=== PATIENT | female | born 1975 | race Asian ===

== ENCOUNTER → 2018-06-17 07:26 | Outpatient (CLI) | payer OTHER, SELFPAY ==
[2018-06-17 08:59] LABS: Alanine Aminotransferase 33 IU/L (9-52); Albumin 4.4 g/dL (3.5-5.0); Albumin Globulin Ratio 1.5 (1.0-2.8); Alkaline Phosphatase 40 U/L (38-126); Aspartate Aminotransferase 24 IU/L (14-36); BUN Creatinine Ratio 13.3 (6-22); Bilirubin Total 0.3 mg/dL (0.2-1.3); Blood Urea Nitrogen 8 mg/dL (7-17); Calcium 9.5 mg/dL (8.4-10.2); Carbon Dioxide 31 mmol/L (22-32); Chloride 99 mmol/L (98-107); Cholesterol 131 mg/dL (140-199); Estimated Glomerular Filt Rate > 60.0 mL/min (>60); Globulin 2.9 g/dL (1.7-4.1); Glucose 87 mg/dL (70-100); HDL Cholesterol 50 mg/dL (40-60); HEMOLYSIS < 15 (0-50); LDL Cholesterol Calculated 68 mg/dL (<100); Potassium 4.4 mmol/L (3.4-5.1); Sodium 139 mmol/L (137-145); Total Protein 7.3 g/dL (6.3-8.2); Triglycerides 66 mg/dL (35-150)
== END ==
PROVIDERS: PCP Internal Medicine; Visit Provider Internal Medicine
DX: Z13.1 Encounter for screening for diabetes mellitus (principal); Z13.6 Encounter for screening for cardiovascular disorders
CPT/HCPCS: 36415; 80053; 80061

== ENCOUNTER → 2020-01-31 13:20 | Outpatient (CLI) | payer OTHER, SELFPAY ==
[2020-02-02 07:32] LABS: COVID19 Sendout Not Detected (Not Detect)
== END ==
PROVIDERS: PCP Internal Medicine; Visit Provider Physician Assistant
DX: M79.10 Myalgia, unspecified site (principal); R53.83 Other fatigue; Z11.59 Encounter for screening for other viral diseases
CPT/HCPCS: 87635

== ENCOUNTER → 2020-08-21 09:45 | Outpatient (CLI) | payer OTHER, SELFPAY ==
[2020-08-21 11:47] LABS: Alanine Aminotransferase 75 IU/L (<35); Albumin 4.5 g/dL (3.5-5.0); Albumin Globulin Ratio 1.4 (1.0-2.8); Alkaline Phosphatase 50 U/L (38-126); Aspartate Aminotransferase 58 IU/L (14-36); BUN Creatinine Ratio 26.2 (6-22); Bilirubin Total 0.4 mg/dL (0.2-1.3); Blood Urea Nitrogen 11 mg/dL (7-17); Calcium 9.6 mg/dL (8.4-10.2); Carbon Dioxide 30 mmol/L (22-32); Chloride 103 mmol/L (98-107); Estimated Glomerular Filt Rate > 60.0 mL/min (>60); Globulin 3.3 g/dL (1.7-4.1); Glucose 88 mg/dL (70-100); HEMOLYSIS < 15 (0-50); Magnesium 2.4 mg/dL (1.6-2.3); Potassium 4.1 mmol/L (3.4-5.1); Sodium 141 mmol/L (137-145); Total Protein 7.8 g/dL (6.3-8.2)
== END ==
PROVIDERS: PCP Internal Medicine; Referring Provider Internal Medicine; Visit Provider Internal Medicine
DX: R00.2 Palpitations (principal)
CPT/HCPCS: 36415; 80053; 83735

== ENCOUNTER → 2020-08-23 08:16 | Outpatient (CLI) | payer OTHER, SELFPAY ==
[2020-08-23 09:51] LABS: HEMOLYSIS < 15 (0-50); Iron 167 ug/dL (37-170)
[2020-08-23 09:53] LABS: Alanine Aminotransferase 78 IU/L (<35); Albumin 4.5 g/dL (3.5-5.0); Albumin Globulin Ratio 1.5 (1.0-2.8); Alkaline Phosphatase 45 U/L (38-126); Aspartate Aminotransferase 56 IU/L (14-36); Bilirubin Total 0.4 mg/dL (0.2-1.3); Bilirubin Unconjugated 0.5 mg/dL (0.0-1.1); Creatine Kinase 81 U/L (30-135); Globulin 3.1 g/dL (1.7-4.1); HEMOLYSIS < 15 (0-50); Total Protein 7.6 g/dL (6.3-8.2)
[2020-08-23 10:04] LABS: Percent Iron Saturation 54 % (15-50); Total Iron Binding Capacity 310 ug/dL (265-497); Transferrin 252 mg/dL (206-381)
[2020-08-23 10:21] LABS: TSH w/ Reflex to FT4 1.89 uIU/mL (0.47-4.68)
[2020-08-24 04:08] LABS: Ceruloplasmin 18.8 mg/dL (19.0-39.0)
[2020-08-24 05:30] LABS: Hepatitis B Surf Ab Qualitativ Reactive (.)
[2020-08-24 16:05] LABS: Hepatitis B Surface Antigen NEGATIVE s/c (NEGATIVE)
[2020-08-24 16:11] LABS: Hep C Virus Ab w/Reflex Quant NEGATIVE s/c (NEGATIVE)
[2020-08-25 14:59] LABS: Smooth Muscle Antibody 10 Units (0-19)
[2020-08-25 15:36] LABS: ANA Screen, IFA Negative (.)
[2020-08-29 04:01] LABS: Deamidated Gliadin IgA 7 units (0-19); Deamidated Gliadin IgG <1 units (0-19); IGA 196 mg/dL (87-352); t-Transglutaminase IgA <2 U/mL (0-3)
== END ==
PROVIDERS: PCP Internal Medicine; Referring Provider Internal Medicine; Visit Provider Internal Medicine
DX: K73.9 Chronic hepatitis, unspecified (principal); R74.01 Elevation of levels of liver transaminase levels
CPT/HCPCS: 36415; 80076; 82390; 82550; 82784; 83516; 83540; 83550; 84443; 86038; 86255; 86706; 86803; 87340

== ENCOUNTER → 2020-08-25 09:32 | Outpatient (CLI) | payer OTHER, SELFPAY ==
--- NOTE | 2020-08-25 09:33 | DI.MG.S_ITS ---
BILATERAL DIGITAL SCREENING MAMMOGRAM 3D/2D WITH CAD: 08/25/2020 CLINICAL: Routine screening. Comparison is made to exams dated: 07/11/2017 mammogram, 06/28/2015 mammogram, and 06/15/2009 mammogram - [facility]. The tissue of both breasts is heterogeneously dense. This may lower the sensitivity of mammography. Current study was also evaluated with a Computer Aided Detection (CAD) system. No significant masses, calcifications, or other findings are seen in either breast. There has been no significant interval change. IMPRESSION: NEGATIVE There is no mammographic evidence of malignancy. A 1 year screening mammogram is recommended. This exam was interpreted at Station ID: [id number]. NOTE: For mammograms, a report in lay terms will be sent to the patient. Approximately 15% of breast malignancies will not be visualized mammographically. In the management of a palpable breast mass, a negative mammogram must not discourage biopsy of a clinically suspicious lesion. Electronically Signed By: Patrick to/reubne:08/28/2020 07:39:52 letter sent: Normal Exam ACR BI-RADS Category 1: Negative 3341F
== END ==
PROVIDERS: PCP Internal Medicine; Referring Provider Internal Medicine; Visit Provider Internal Medicine
DX: Z12.31 Encounter for screening mammogram for malignant neoplasm of breast (principal); R00.2 Palpitations
CPT/HCPCS: 77063; 77067

== ENCOUNTER → 2020-08-30 09:49 | Outpatient (CLI) | payer OTHER, SELFPAY ==
--- NOTE | 2020-09-26 09:54 | PM.CARDMON.1 ---
Military Technology Manager Report Referral & Results Date Patient Seen: 08/30/20 Requesting provider: Alex Hankins Indication: Palpitations Duration of monitoring (days): 7 Diary information: There were 7 patient triggered events and no patient diary entries Patient triggered events were associated variably with (within 45 seconds) sinus rhythm, PVCs, PACs and SVT Data: Minimum heart rate identified was 55 beats per minute at 18:55 on 09/02/2020 Maximum sinus heart rate was 150 beats per minute at 09:48 on 09/03/2020 Maximum overall heart rate was 152 beats per minute at 12:02 on 09/05/2020 during a 4 beat run of SVT Less than 1% of identified beats were ventricular or supraventricular ectopic in origin, which would classify them as rare. There was wall only 1 run of SVT/atrial tachycardia lasting 4 beats at a rate of 152 beats per minute as above. Impression: 7 day campus monitor showing no significant dysrhythmias. Rare PACs and PVCs and a single run of SVT. No clear correlation between symptoms reported any significant dysrhythmia in part due to the rare nature of patient's identified dysrhythmias. Clinical correlation suggested
== END ==
PROVIDERS: PCP Internal Medicine; Referring Provider Internal Medicine; Visit Provider Internal Medicine
DX: R00.2 Palpitations (principal)
CPT/HCPCS: 93242; 93244

== ENCOUNTER → 2021-11-18 09:11 | Outpatient (CLI) | payer OTHER, SELFPAY ==
[2021-11-18 10:50] LABS: COVID19 -Nasal RAPID Negative (Negative)
== END ==
PROVIDERS: PCP Internal Medicine; Visit Provider Surgery
DX: Z01.812 Encounter for preprocedural laboratory examination (principal); Z20.822 Contact with and (suspected) exposure to COVID-19
CPT/HCPCS: 87635; C9803

== ENCOUNTER 2021-11-19 09:47 | Day surgery (SDC) | payer OTHER, SELFPAY ==
[2021-11-19 09:57] VITALS: BMI 27.4
[2021-11-19 10:03] VITALS: BP 133/86; PULSE 78; RESP 16; TEMP 36.6; O2SAT 100
[2021-11-19] MEDS: LACTATED RINGERS 1,000 ML 42 ML IV (10:10)
--- NOTE | 2021-11-19 11:05 | PM.HP.1 ---
History of Present Illness History of Present Illness Date Patient Seen: 11/19/21 Time Patient Seen: 11:05 Chief complaint: SDC Narrative: colon cancer screening. First scope, no family history or colon cancer symptoms. Patient History Medical History Cervical intraepithelial neoplasia grade III with severe dysplasia (01/22/11) Common wart Surgical History History of tonsillectomy Status post delivery Family & Social History Family History Father Age: 83 Heart disease Social History: household members family Tobacco & Substance use: Smoking Status Never smoker alcohol intake current alcohol intake frequency a few times a month Substance Use Type does not use Meds Home Medications and Allergies Home Medications Medication Instructions Recorded Confirmed Type cetirizine 10 mg tablet 10 mg PO Q DAY ##0 06/07/12 11/19/21 History fluticasone propionate 50 1 spray intranasal DAILY 08/21/20 11/19/21 History mcg/actuation nasal spray,suspension (Flonase Allergy Relief) Allergies Allergy/AdvReac Type Severity Reaction Status Date / Time No Known Drug Allergies Allergy Verified 11/19/21 09:56 Review of Systems Review of Systems ROS: Yes All systems reviewed with the patient and are negative except as otherwise documented Exam Vital Signs (past 8 hours): - 11/19/21 10:03 Temperature 97.9 F Pulse Rate 78 Respiratory Rate 16 Blood Pressure 133/86 Pulse Oximetry 100 Oxygen Delivery Method Room Air Oxygen Delivery Method Room Air Const General: cooperative and healthy appearing Nutritional Appearance: average body habitus [facility] Head: normocephalic and atraumatic Eyes General: appearance normal, both eyes and all related structures Sclera: sclerae normal Neck Neck: full ROM and trachea midline Chest Chest: normal inspection of the chest Resp Effort & Inspection: normal respiratory effort and able to speak in complete sentences Cardio Rate: regular rate Rhythm: regular rhythm GI Inspection: normal to inspection Skin General: no rashes or lesions noted and turgor normal Neuro General: patient alert, patient awake and patient oriented x3 Extrem General: full ROM Psych Appearance: grossly normal Mental Status: mental status grossly normal Judgment: judgment good Assessment & Plan Assessment & Plan narrative: colon cancer screening with colonoscopy and moderate sedation COVID-19 COVID-19 status: Negative Time Spent With Patient Time with patient: less than 30 minutes Critical Care time: I spent a total of [] minutes of critical care time on this patient's care today; this time is exclusive of procedural time.
[2021-11-19] MEDS: MIDAZOLAM 5 MG/5 ML VIAL 8 MG IV (11:35)
[2021-11-19] MEDS: fentaNYL 100 MCG/2 ML INJ 150 MCG IV (11:36)
--- NOTE | 2021-11-19 11:39 | PM.OP.COLON ---
Operative Date/Time/Diagnoses Date of procedure: 11/19/21 Time of procedure: 11:39 Pre-op diagnosis: colon cancer screening Post-op diagnosis: same Procedure & Clinicians Study performed: Colonoscopy with moderate sedation Same procedure as scheduled: Yes Indications: Colon cancer screening Surgeon: Sunni Elder Procedure Notes Procedure in detail: Preop diagnosis: Colon cancer screening Postop diagnosis: Same Operative procedure: Colonoscopy with moderate sedation Surgeon: Jesusita Elder MD Anesthetic: Versed 8 mg fentanyl 150 mcg Findings: Normal colon. No polyps, no diverticuli. Procedure: Patient placed in lateral position. Rectal exam performed showing normal tone no masses. Colonoscope was inserted into the rectum and advanced to ileocecal valve with minimal difficulty. Insufflation extraction scope and the above findings. Impression: Normal colonoscopy. No polyps, no diverticuli. Plan: Repeat colonoscopy in 10 years unless otherwise indicated by change in family history or clinical condition Sedation minutes: 15 Specimen(s): none sent Complications: none Post-procedure Recommendations: Colonoscopy in 10 years Follow up: as needed Disposition: PACU
[2021-11-19 11:44] VITALS: BP 107/66; PULSE 65; RESP 12; TEMP 36.8; O2SAT 95
[2021-11-19 11:47] VITALS: BP 101/67; PULSE 59; RESP 16; O2SAT 96
[2021-11-19 11:52] VITALS: BP 115/71; PULSE 73; RESP 14; O2SAT 97
[2021-11-19 11:57] VITALS: BP 105/67; PULSE 66; RESP 14; TEMP 37.3; O2SAT 97
[2021-11-19 11:59] VITALS: BP 111/66; PULSE 64; RESP 12; TEMP 36.8; O2SAT 98
== END 2021-11-19 12:12 | disposition home or self-care (01) ==
PROVIDERS: PCP Internal Medicine; Referring Provider Surgery; Visit Provider Surgery
PROC: 0DJD8ZZ Inspection of Lower Intestinal Tract, Via Natural or Artificial Opening Endoscopic (ICD-10-PCS; CPT 45378; principal; 2021-11-19 10:45)
DX: Z12.11 Encounter for screening for malignant neoplasm of colon (principal)
CPT/HCPCS: 45378; 99152; J2250; J3010

== ENCOUNTER → 2021-12-27 17:03 | Outpatient (CLI) | payer OTHER, SELFPAY | PROVIDERS: PCP Internal Medicine; Referring Provider Internal Medicine; Visit Provider Internal Medicine | DX: Z23 Encounter for immunization (principal) | CPT/HCPCS: 90471; 90686 ==

== ENCOUNTER → 2022-01-31 07:58 | Outpatient (CLI) | payer OTHER, SELFPAY ==
--- NOTE | 2022-01-31 | DI.MG.S_ITS ---
BILATERAL DIGITAL SCREENING MAMMOGRAM 3D/2D WITH CAD: 01/31/2022 CLINICAL: Routine screening. Comparison is made to exams dated: 08/25/2020 mammogram, 07/31/2017 mammogram, and 07/11/2017 mammogram - [facility]. Both breasts are heterogeneously dense, which may obscure small masses (category c / 51-75% glandular tissue). Current study was also evaluated with a Computer Aided Detection (CAD) system. No significant masses, calcifications, or other findings are seen in either breast. There has been no significant interval change. IMPRESSION: NEGATIVE There is no mammographic evidence of malignancy. A 1 year screening mammogram is recommended. This exam was interpreted at Station ID: [id number]. NOTE: For mammograms, a report in lay terms will be sent to the patient. Approximately 15% of breast malignancies will not be visualized mammographically. In the management of a palpable breast mass, a negative mammogram must not discourage biopsy of a clinically suspicious lesion. Electronically Signed By: Hardik modi/reuben:01/31/2022 13:10:40 letter sent: Normal Exam ACR BI-RADS Category 1: Negative 3341F
== END ==
PROVIDERS: PCP Internal Medicine; Referring Provider Internal Medicine; Visit Provider Internal Medicine
DX: Z12.31 Encounter for screening mammogram for malignant neoplasm of breast (principal)
CPT/HCPCS: 77063; 77067

== ENCOUNTER 2022-06-20 08:15 | Outpatient (RCR) | payer OTHER, SELFPAY ==
--- NOTE | 2022-04-11 21:38 | PT.OPPOC ---
Physical, Occupational & Speech Therapy At Current Diagnoses Cervicalgia (04/11/22) Visit Care Team Role Provider Type Alex Hankins MD Attending Provider Physician Family Provider Primary Care Provider Referring Provider Specialty: Internal Medicine Address: [address] [place] [address], [facility] [address], [address] Email: [email or web address] Plan Of Care PT-OP-T Assessment and Plan Start: 04/05/22 09:55 Freq: Status: Active Protocol: Document 04/11/22 09:45 AMB (Rec: 04/12/22 21:37 AMB [id number]) Physical Therapy Assessment Goals Two Impairment Pain Short Term Goal (STG) Lianna will work an 8 hour shift with 1/10 neck pain or less. STG Duration 4 weeks Prison Goal (LTG) Lianna will work on the computer for one hour with 1/ 10 neck pain or less. LTG Duration 6 weeks One Impairment ROM Short Term Goal (STG) Lianna will improve her active cervical rotation to 65 degrees bilaterally. STG Duration 4 weeks Prison Goal (LTG) Lianna will improve her active cervical flexion to at least 45 degrees. LTG Duration 6 weeks Assessment Summary Assessment Lianna attends physical therapy with chronic L sided cervical pain for past year. It has recently improved with a change in her workstation, but has continued to linger on in left upper trapezius and levator scapula. She presented with reduced range of motion into rotation and flexion. Reduced strength in her deep neck flexors and continued tension and tenderness in L>R neck musculature. She will benefit from physical therapy for instruction in an appropriate HEP and therapeutic exercise and manual therapy to return her ROM to within normal limits. Physical Therapy Plan Frequency and Duration Frequency of Treatment 2x/Week Duration of treatment (weeks) 6 Plan of Care Start Date 04/11/22 Plan of Care End Date 05/23/22 Therapeutic Interventions Therapeutic Interventions Home Exercise Program,Joint Mobilizations,Manual Therapy, Neuromuscular Re-education, Self-Care/Home Management, Therapeutic Activities, Therapeutic Exercises Modalities Cold Pack/Ice Massage,Electric Stimulation,Hot Packs Next Visit Focus/Plan Next Note Type Treatment Note Next Visit Plan Review cervical rotation isometrics and UT stretch. Can consider modalities/heat. Manual for increasing ROM especially into flexion. Progress stretching HEP. Plan of Care Dates Plan of Care Start Date 04/11/22 Plan of Care End Date 05/23/22 Electronically Signed by: Criss Francis, PT 04/12/22 [id number] If you are in agreement with this Plan of Care, please return a signed and dated copy. I have reviewed this Plan of Care and certify that the skilled therapy services above are required to meet the patient?s needs. Physician Signature Date Printed Name and Credentials Clinical Instructor Signature Printed Name and Credentials
--- NOTE | 2022-04-11 21:38 | PT.OIE ---
Current Diagnoses Cervicalgia (04/11/22) Past Medical History (Last Reviewed 03/18/22 @ 09:16 by WIN Mariscal) Cervical intraepithelial neoplasia grade III with severe dysplasia (01/22/11) Common wart Past Surgical History (Last Reviewed 03/18/22 @ 09:16 by WIN Mariscal) History of tonsillectomy Status post delivery Visit Care Team Role Provider Type Alex Hankins MD Attending Provider Physician Family Provider Primary Care Provider Referring Provider Specialty: Internal Medicine Address: [address] [place] [address], [address], [facility] Email: [email or web address] Physical Therapy Initial Evaluation PT-OP-A Visit Information Start: 04/05/22 09:55 Freq: Status: Active Protocol: Document 04/11/22 09:51 AMB (Rec: 04/11/22 09:58 AMB [id number]) Out-Patient Physical Therapy Visit Information Visit Information Visit Type Initial Evaluation Visit Start Time 09:45 Visit Stop Time 10:30 Total Visit Minutes 45 Visit Number 1 PT-OP-B Current Condition Start: 04/05/22 09:55 Freq: Status: Active Protocol: Document 04/11/22 09:51 AMB (Rec: 04/11/22 09:58 AMB [id number]) Current Condition History of Current Condition Onset Date 1 year Current Complaints L sided neck pain History of Current Condition Lianna reports feeling better with new workstation (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 L sided upper trap pain/levator scap. Denies n/t. Overall continues to have tightness but significantly improved. Does run and do core exercises , just started with a education trainer for weights, does some stretching. Prior Functional Status Baseline Function- ADL's Independent Baseline Function- Mobility Independent PT-OP-C Subjective Start: 04/05/22 09:55 Freq: Status: Active Protocol: Document 04/11/22 09:45 AMB (Rec: 04/11/22 16:01 AMB [id number]) Patient Questionnaires Neck Disability Index NDI Score 18 Neck Disability Index Impairment 20 to 39% Impaired (Score 10- 19) Quick Dash- Upper Extremity Quick Dash UE Score 18 Quick Dash UE Impairment 1 to 19% Impaired (Score 1-19) OP-PT Pain Assessment Comments Pain Comments 2-4/10 neck pain PT-OP-J Posture/Palpation/Skin Start: 04/05/22 09:55 Freq: Status: Active Protocol: Document 04/11/22 09:45 AMB (Rec: 04/11/22 16:02 AMB [id number]) Palpation Assessment Location One Palpation Location neck Palpation Details Tightness at UT and levator scap L>R, mild tenderness at suboccipitals PT-OP-K Range of Motion Start: 04/05/22 09:55 Freq: Status: Active Protocol: Document 04/11/22 09:45 AMB (Rec: 04/11/22 16:01 AMB [id number]) Cervical Spine Range of Motion Cervical Spine Active Degrees Testing Position Sitting Flexion 25 Extension 45 Rotation Left 55 Rotation Right 55 PT-OP-M Strength Start: 04/05/22 09:55 Freq: Status: Active Protocol: Document 04/11/22 09:45 AMB (Rec: 04/12/22 21:37 AMB [id number]) Cervical Spine Strength Cervical Spine Manual Muscle Testing Testing Position Supine Comments difficulty holding chin tuck/ neck flexion for more than 3 seconds with good form. PT-OP-Q Treatments Start: 04/05/22 09:55 Freq: Status: Active Protocol: Document 04/11/22 09:45 AMB (Rec: 04/12/22 21:37 AMB [id number]) Therapeutic Exercises Supine Exercises cervical isometrics Supine Exercise Name rotation Side bilateral Reps/Minutes 5x5 Comments cued breath Sitting Exercises UT stretch Side left Reps/Minutes 30x2 PT-OP-T Assessment and Plan Start: 04/05/22 09:55 Freq: Status: Active Protocol: Document 04/11/22 09:45 AMB (Rec: 04/12/22 21:37 AMB [id number]) Physical Therapy Assessment Goals Two Impairment Pain Short Term Goal (STG) Lianna will work an 8 hour shift with 1/10 neck pain or less. STG Duration 4 weeks Stamp Classifier Goal (LTG) Lianna will work on the computer for one hour with 1/ 10 neck pain or less. LTG Duration 6 weeks One Impairment ROM Short Term Goal (STG) Lianna will improve her active cervical rotation to 65 degrees bilaterally. STG Duration 4 weeks Stamp Classifier Goal (LTG) Lianna will improve her active cervical flexion to at least 45 degrees. LTG Duration 6 weeks Assessment Summary Assessment Lianna attends physical therapy with chronic L sided cervical pain for past year. It has recently improved with a change in her workstation, but has continued to linger on in left upper trapezius and levator scapula. She presented with reduced range of motion into rotation and flexion. Reduced strength in her deep neck flexors and continued tension and tenderness in L>R neck musculature. She will benefit from physical therapy for instruction in an appropriate HEP and therapeutic exercise and manual therapy to return her ROM to within normal limits. Physical Therapy Plan Frequency and Duration Frequency of Treatment 2x/Week Duration of treatment (weeks) 6 Plan of Care Start Date 04/11/22 Plan of Care End Date 05/23/22 Therapeutic Interventions Therapeutic Interventions Home Exercise Program,Joint Mobilizations,Manual Therapy, Neuromuscular Re-education, Self-Care/Home Management, Therapeutic Activities, Therapeutic Exercises Modalities Cold Pack/Ice Massage,Electric Stimulation,Hot Packs Next Visit Focus/Plan Next Note Type Treatment Note Next Visit Plan Review cervical rotation isometrics and UT stretch. Can consider modalities/heat. Manual for increasing ROM especially into flexion. Progress stretching HEP.
--- NOTE | 2022-04-14 17:47 | PT.OTN ---
Current Diagnoses Cervicalgia (04/14/22) Physical Therapy Treatment Note PT-OP-A Visit Information Start: 04/05/22 09:55 Freq: Status: Active Protocol: Document 04/14/22 13:54 NBM (Rec: 04/14/22 15:18 NBM [id number]) Out-Patient Physical Therapy Visit Information Visit Information Visit Type Treatment Note Visit Start Time 13:53 Visit Stop Time 14:38 Total Visit Minutes 45 Visit Number 2 Number of WATER SANDER Visits 1 PT-OP-B Current Condition Start: 04/05/22 09:55 Freq: Status: Active Protocol: Document 04/11/22 09:51 AMB (Rec: 04/11/22 09:58 AMB [id number]) Current Condition History of Current Condition Onset Date 1 year Current Complaints L sided neck pain History of Current Condition Lianna reports feeling better with new workstation (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 L sided upper trap pain/levator scap. Denies n/t. Overall continues to have tightness but significantly improved. Does run and do core exercises , just started with a computer technology trainer for weights, does some stretching. Prior Functional Status Baseline Function- ADL's Independent Baseline Function- Mobility Independent PT-OP-C Subjective Start: 04/05/22 09:55 Freq: Status: Active Protocol: Document 04/14/22 13:54 NBM (Rec: 04/14/22 15:18 NBM [id number]) OP-PT Subjective Patient Comments Patient Comments Pt reports soreness Thursday and Thursday, but better since. She got the theracane, but has not used it since she has not been sore since. She used salonpass and advil as well as the two PT ex's which helped. PT-OP-J Posture/Palpation/Skin Start: 04/05/22 09:55 Freq: Status: Active Protocol: Document 04/11/22 09:45 AMB (Rec: 04/11/22 16:02 AMB [id number]) Palpation Assessment Location One Palpation Location neck Palpation Details Tightness at UT and levator scap L>R, mild tenderness at suboccipitals PT-OP-K Range of Motion Start: 04/05/22 09:55 Freq: Status: Active Protocol: Document 04/11/22 09:45 AMB (Rec: 04/11/22 16:01 AMB [id number]) Cervical Spine Range of Motion Cervical Spine Active Degrees Testing Position Sitting Flexion 25 Extension 45 Rotation Left 55 Rotation Right 55 PT-OP-M Strength Start: 04/05/22 09:55 Freq: Status: Active Protocol: Document 04/11/22 09:45 AMB (Rec: 04/12/22 21:37 AMB [id number]) Cervical Spine Strength Cervical Spine Manual Muscle Testing Testing Position Supine Comments difficulty holding chin tuck/ neck flexion for more than 3 seconds with good form. PT-OP-Q Treatments Start: 04/05/22 09:55 Freq: Status: Active Protocol: Document 04/14/22 13:54 NBM (Rec: 04/14/22 15:18 NBM [id number]) Therapeutic Exercises Supine Exercises cervical isometrics Supine Exercise Name rotation Side bilateral Reps/Minutes 5x5 Sitting Exercises Cervical Retraction Iso Sitting Exercise Name w/ towel - HEP Equipment Used towel Reps/Minutes 10x3 SH Comments good feedback response Chin tuck Sitting Exercise Name w/ overpressure - HEP Reps/Minutes x10 Comments good form Scalene stretch Sitting Exercise Name HEP Side bilateral Reps/Minutes 30x2 Comments cues for form, good feedback response LS stretch Sitting Exercise Name HEP Side bilateral Reps/Minutes 30 x 2 Comments vc chin tuck UT stretch Side left Reps/Minutes 30x2 Comments vc chin tuck Manual Therapy Treatment Soft Tissue Mobilization periscapular Body Location L UT, L LS, medial border of scapula, rhomboids Mobilization Type Rolling,Strumming,Sustained Pressure,Trigger Point Release Intensity/Depth Moderate Body Position Hooklying Comments focus on LS insertion at superior angle of L scapula and medial border of L scapular cervical Body Location LS L>R, paraspinals, SO, scalenes Mobilization Type Rolling,Strumming,Sustained Pressure,Trigger Point Release Intensity/Depth Moderate Body Position Hooklying Comments SO release, manual cervical trx 2x30 Self-Care/Home Management Treatment Education Patient Education Home Exercise Program,Posture Other Education Clarified that cervical isometrics are for strengthening more than stretching. Discussed chin tucks to improve forward head posture. Added to HEP: LS and Scalene stretch, chin tuck w/ overpressure, Towel cervical retraction isometric - HO given. Discussed posterior chain strengthening for next visit. PT-OP-R Modalities Start: 04/05/22 09:55 Freq: Status: Active Protocol: Document 04/14/22 13:54 NBM (Rec: 04/14/22 17:46 [facility] [id number]) Hot Pack/Cold Pack Treatment Hot Pack Location cervical Patient Position Hooklying Treatment Duration (minutes) 10 Patient Tolerance Good PT-OP-T Assessment and Plan Start: 04/05/22 09:55 Freq: Status: Active Protocol: Document 04/14/22 13:54 NB (Rec: 04/14/22 15:18 [facility] [id number]) Physical Therapy Assessment Goals Two Impairment Pain Short Term Goal (STG) Lianna will work an 8 hour shift with 1/10 neck pain or less. STG Duration 4 weeks Senior Living Goal (LTG) Lianna will work on the computer for one hour with 1/ 10 neck pain or less. LTG Duration 6 weeks One Impairment ROM Short Term Goal (STG) Lianna will improve her active cervical rotation to 65 degrees bilaterally. STG Duration 4 weeks Senior Living Goal (LTG) Lianna will improve her active cervical flexion to at least 45 degrees. LTG Duration 6 weeks Assessment Summary Assessment Pt requires cues for chin tuck w/ ex's and discussed chin tuck to improve forward head posture. Pt's palpable tightness to L LS and medial border of scapula decreases with manual. Clarified that cerivical isometrics are for strengthening more than stretching. Added to HEP: LS and Scalene stretch, chin tuck w/ overpressure, Towel cervical retraction isometric - HO given. Discussed posterior chain strengthening for next visit. Physical Therapy Plan Frequency and Duration Frequency of Treatment 2x/Week Duration of treatment (weeks) 6 Plan of Care Start Date 04/11/22 Plan of Care End Date 05/23/22 Therapeutic Interventions Therapeutic Interventions Home Exercise Program,Joint Mobilizations,Manual Therapy, Neuromuscular Re-education, Self-Care/Home Management, Therapeutic Activities, Therapeutic Exercises Modalities Cold Pack/Ice Massage,Electric Stimulation,Hot Packs Next Visit Focus/Plan Next Note Type Treatment Note Next Visit Plan Introduce Posterior chain strengthening (rows, ext). Review cervical rotation isometrics and UT stretch. Can consider modalities/heat. Manual for increasing ROM especially into flexion. Progress stretching HEP.
--- NOTE | 2022-04-18 16:09 | PT.OTN ---
Current Diagnoses Cervicalgia (04/18/22) Physical Therapy Treatment Note PT-OP-A Visit Information Start: 04/05/22 09:55 Freq: Status: Active Protocol: Document 04/18/22 10:32 AMB (Rec: 04/18/22 11:40 AMB [id number]) Out-Patient Physical Therapy Visit Information Visit Information Visit Type Treatment Note Visit Start Time 10:30 Visit Stop Time 11:15 Total Visit Minutes 45 Visit Number 3 PT-OP-B Current Condition Start: 04/05/22 09:55 Freq: Status: Active Protocol: Document 04/11/22 09:51 AMB (Rec: 04/11/22 09:58 AMB [id number]) Current Condition History of Current Condition Onset Date 1 year Current Complaints L sided neck pain History of Current Condition Lianna reports feeling better with new workstation (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 L sided upper trap pain/levator scap. Denies n/t. Overall continues to have tightness but significantly improved. Does run and do core exercises , just started with a aed trainer for weights, does some stretching. Prior Functional Status Baseline Function- ADL's Independent Baseline Function- Mobility Independent PT-OP-C Subjective Start: 04/05/22 09:55 Freq: Status: Active Protocol: Document 04/18/22 10:32 AMB (Rec: 04/18/22 11:40 AMB [id number]) OP-PT Subjective Patient Comments Patient Comments Pt reports some soreness after last visit, overall some soreness with aed trainer exercises. PT-OP-J Posture/Palpation/Skin Start: 04/05/22 09:55 Freq: Status: Active Protocol: Document 04/11/22 09:45 AMB (Rec: 04/11/22 16:02 AMB [id number]) Palpation Assessment Location One Palpation Location neck Palpation Details Tightness at UT and levator scap L>R, mild tenderness at suboccipitals PT-OP-K Range of Motion Start: 04/05/22 09:55 Freq: Status: Active Protocol: Document 04/11/22 09:45 AMB (Rec: 04/11/22 16:01 AMB [id number]) Cervical Spine Range of Motion Cervical Spine Active Degrees Testing Position Sitting Flexion 25 Extension 45 Rotation Left 55 Rotation Right 55 PT-OP-M Strength Start: 04/05/22 09:55 Freq: Status: Active Protocol: Document 04/11/22 09:45 AMB (Rec: 04/12/22 21:37 AMB [id number]) Cervical Spine Strength Cervical Spine Manual Muscle Testing Testing Position Supine Comments difficulty holding chin tuck/ neck flexion for more than 3 seconds with good form. PT-OP-Q Treatments Start: 04/05/22 09:55 Freq: Status: Active Protocol: Document 04/18/22 10:32 AMB (Rec: 04/18/22 11:40 AMB [id number]) Therapeutic Exercises Sitting Exercises LS stretch Sitting Exercise Name HEP Side bilateral Reps/Minutes 30 x 2 Comments vc chin tuck UT stretch Side left Reps/Minutes 30x2 Comments vc chin tuck Standing Exercises wall walk and lift off Standing Exercise Name cued to maintain chin tuck Reps/Minutes 10 Comments good stretch shoulder ext Reps/Minutes #3 t band Comments 2x10 rows Equipment Used #3 t band Reps/Minutes 2x10 Manual Therapy Treatment Soft Tissue Mobilization cervical Body Location LS L>R, paraspinals, SO, scalenes Mobilization Type Rolling,Strumming,Sustained Pressure,Trigger Point Release Intensity/Depth Moderate Body Position Hooklying Comments SO release, manual cervical trx 2x30 Joint Mobilizations cervical Joint C3-5 Direction UPA Grade II Body Position Supine Reps/Duration 2x10 PT-OP-R Modalities Start: 04/05/22 09:55 Freq: Status: Active Protocol: Document 04/18/22 10:30 AMB (Rec: 04/18/22 15:57 AMB [id number]) Hot Pack/Cold Pack Treatment Hot Pack Location cervical Patient Position Hooklying Treatment Duration (minutes) 10 Patient Tolerance Good PT-OP-T Assessment and Plan Start: 04/05/22 09:55 Freq: Status: Active Protocol: Document 04/18/22 10:32 AMB (Rec: 04/18/22 11:40 AMB [id number]) Physical Therapy Assessment Goals Two Impairment Pain Short Term Goal (STG) Lianna will work an 8 hour shift with 1/10 neck pain or less. STG Duration 4 weeks Pneumatic Hoist Operator Goal (LTG) Lianna will work on the computer for one hour with 1/ 10 neck pain or less. LTG Duration 6 weeks One Impairment ROM Short Term Goal (STG) Lianna will improve her active cervical rotation to 65 degrees bilaterally. STG Duration 4 weeks Mcc Goal (LTG) Lianna will improve her active cervical flexion to at least 45 degrees. LTG Duration 6 weeks Assessment Summary Assessment Better form with chin tucks today. Encouraged posture and chin tucks with rows and shoulder extension. Did well with with form with shoulder flexion and lift off as well but did not give for HEP yet, could consider at next visit. Cervical flexion improved today, would still want to work on cervical rotation R ROM. Physical Therapy Plan Frequency and Duration Frequency of Treatment 2x/Week Duration of treatment (weeks) 6 Plan of Care Start Date 04/11/22 Plan of Care End Date 05/23/22 Therapeutic Interventions Therapeutic Interventions Home Exercise Program,Joint Mobilizations,Manual Therapy, Neuromuscular Re-education, Self-Care/Home Management, Therapeutic Activities, Therapeutic Exercises Modalities Cold Pack/Ice Massage,Electric Stimulation,Hot Packs Next Visit Focus/Plan Next Note Type Treatment Note Next Visit Plan REview Posterior chain strengthening (rows, ext). Review cervical rotation isometrics and UT stretch. Can consider modalities/heat. Manual for increasing ROM especially into flexion. Progress stretching HEP.
--- NOTE | 2022-04-25 10:01 | PT.OTN ---
Current Diagnoses Cervicalgia (04/25/22) Physical Therapy Treatment Note PT-OP-A Visit Information Start: 04/05/22 09:55 Freq: Status: Active Protocol: Document 04/25/22 09:25 NBM (Rec: 04/25/22 10:01 [facility] [id number]) Out-Patient Physical Therapy Visit Information Visit Information Visit Type Treatment Note Visit Start Time 09:15 Visit Stop Time 09:53 Total Visit Minutes 38 Visit Number 4 Number of WEATHER STRIPPER Visits 1 PT-OP-B Current Condition Start: 04/05/22 09:55 Freq: Status: Active Protocol: Document 04/11/22 09:51 AMB (Rec: 04/11/22 09:58 AMB [id number]) Current Condition History of Current Condition Onset Date 1 year Current Complaints L sided neck pain History of Current Condition Lianna reports feeling better with new workstation (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 L sided upper trap pain/levator scap. Denies n/t. Overall continues to have tightness but significantly improved. Does run and do core exercises , just started with a dog handler or trainer for weights, does some stretching. Prior Functional Status Baseline Function- ADL's Independent Baseline Function- Mobility Independent PT-OP-C Subjective Start: 04/05/22 09:55 Freq: Status: Active Protocol: Document 04/25/22 09:25 NBM (Rec: 04/25/22 10:01 [facility] [id number]) OP-PT Subjective Patient Comments Patient Comments Pt reports neck stiffness today. She went to gym this morning and did HEP. She forgot about the wall walk lift off one. She's been doing chin tucks regularly and feels there is improvement in posture, but wearing mask makes her stick her head forward. She is using theracane at home. PT-OP-J Posture/Palpation/Skin Start: 04/05/22 09:55 Freq: Status: Active Protocol: Document 04/11/22 09:45 AMB (Rec: 04/11/22 16:02 AMB [id number]) Palpation Assessment Location One Palpation Location neck Palpation Details Tightness at UT and levator scap L>R, mild tenderness at suboccipitals PT-OP-K Range of Motion Start: 04/05/22 09:55 Freq: Status: Active Protocol: Document 04/11/22 09:45 AMB (Rec: 04/11/22 16:01 AMB [id number]) Cervical Spine Range of Motion Cervical Spine Active Degrees Testing Position Sitting Flexion 25 Extension 45 Rotation Left 55 Rotation Right 55 PT-OP-M Strength Start: 04/05/22 09:55 Freq: Status: Active Protocol: Document 04/11/22 09:45 AMB (Rec: 04/12/22 21:37 AMB [id number]) Cervical Spine Strength Cervical Spine Manual Muscle Testing Testing Position Supine Comments difficulty holding chin tuck/ neck flexion for more than 3 seconds with good form. PT-OP-Q Treatments Start: 04/05/22 09:55 Freq: Status: Active Protocol: Document 04/25/22 09:25 NBM (Rec: 04/25/22 10:01 NBM [id number]) Therapeutic Exercises Sitting Exercises Shoulder ER Side bilateral Resistance Lvl3 Tb Reps/Minutes 2x5 Chin tuck Sitting Exercise Name w/ overpressure - HEP Reps/Minutes x10 Comments good form Standing Exercises wall walk and lift off Standing Exercise Name cued to maintain chin tuck and to perform lift off Reps/Minutes 10 Comments fatigues from arms overhead, cues for form Manual Therapy Treatment Soft Tissue Mobilization periscapular Body Location L UT, L LS, medial border of scapula, rhomboids Mobilization Type Rolling,Strumming,Sustained Pressure,Trigger Point Release Intensity/Depth Moderate Body Position Hooklying Comments focus on R UT, LS Self-Care/Home Management Treatment Education Patient Education Home Exercise Program,Pain Management,Safety Other Education Added to HEP: Wall walk w/ lift off - no HO given. PT-OP-R Modalities Start: 04/05/22 09:55 Freq: Status: Active Protocol: Document 04/18/22 10:30 AMB (Rec: 04/18/22 15:57 AMB [id number]) Hot Pack/Cold Pack Treatment Hot Pack Location cervical Patient Position Hooklying Treatment Duration (minutes) 10 Patient Tolerance Good PT-OP-T Assessment and Plan Start: 04/05/22 09:55 Freq: Status: Active Protocol: Document 04/25/22 09:25 NBM (Rec: 04/25/22 10:01 NBM [id number]) Physical Therapy Assessment Goals Two Impairment Pain Short Term Goal (STG) Lianna will work an 8 hour shift with 1/10 neck pain or less. STG Duration 4 weeks Penitentiary Goal (LTG) Lianna will work on the computer for one hour with 1/ 10 neck pain or less. LTG Duration 6 weeks One Impairment ROM Short Term Goal (STG) Lianna will improve her active cervical rotation to 65 degrees bilaterally. STG Duration 4 weeks Verification Engineer Goal (LTG) Lianna will improve her active cervical flexion to at least 45 degrees. LTG Duration 6 weeks Assessment Summary Assessment Pt requires cues for scapular retraction and scapular setting w/ posterior chain ex' s but does demonstrate improved chin tuck self- awareness. Pt's palpable stiffness improves with manual , Right focus>Left. Pt will use heat at home. Enocuraged to drink water as pt worked out earlier, reports feeling stiff and has palpable tightness R>L throughout cervicothoracic region. Added to HEP: wall walk w/ lift off. Physical Therapy Plan Frequency and Duration Frequency of Treatment 2x/Week Duration of treatment (weeks) 6 Plan of Care Start Date 04/11/22 Plan of Care End Date 05/23/22 Therapeutic Interventions Therapeutic Interventions Home Exercise Program,Joint Mobilizations,Manual Therapy, Neuromuscular Re-education, Self-Care/Home Management, Therapeutic Activities, Therapeutic Exercises Modalities Cold Pack/Ice Massage,Electric Stimulation,Hot Packs Next Visit Focus/Plan Next Note Type Treatment Note Next Visit Plan Consider heat to start. Offer wall walk HEP HO. Progress stretching HEP. REview Posterior chain strengthening (rows, ext), wall walk w/ liftoff. Review cervical rotation isometrics and UT stretch. Can consider modalities/heat. Manual for increasing ROM especially into flexion.
--- NOTE | 2022-04-28 11:27 | PT.OTN ---
Current Diagnoses Cervicalgia (04/28/22) Physical Therapy Treatment Note PT-OP-A Visit Information Start: 04/05/22 09:55 Freq: Status: Active Protocol: Document 04/28/22 10:41 LRN (Rec: 04/28/22 11:26 LRN [id number]) Out-Patient Physical Therapy Visit Information Visit Information Visit Type Treatment Note Visit Start Time 10:41 Visit Stop Time 11:19 Total Visit Minutes 38 Visit Number 5 PT-OP-B Current Condition Start: 04/05/22 09:55 Freq: Status: Active Protocol: Document 04/11/22 09:51 AMB (Rec: 04/11/22 09:58 AMB [id number]) Current Condition History of Current Condition Onset Date 1 year Current Complaints L sided neck pain History of Current Condition Lianna reports feeling better with new workstation (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 L sided upper trap pain/levator scap. Denies n/t. Overall continues to have tightness but significantly improved. Does run and do core exercises , just started with a application trainer for weights, does some stretching. Prior Functional Status Baseline Function- ADL's Independent Baseline Function- Mobility Independent PT-OP-C Subjective Start: 04/05/22 09:55 Freq: Status: Active Protocol: Document 04/28/22 10:41 LRN (Rec: 04/28/22 11:26 LRN [id number]) OP-PT Subjective Patient Comments Patient Comments Doing okay and didn't get a chance to do ex's. Less stiff from Thursday. Exercising t gym 3-4x/week and has a application trainer, so gets the ex's mixed up. No neck pain. Work station has been corrected for a month. Still has pain at end of shift. Decreased use of Salon Pas from 5 to 3 days a week. Reports post therapy that she feels it but denies pain. PT-OP-J Posture/Palpation/Skin Start: 04/05/22 09:55 Freq: Status: Active Protocol: Document 04/11/22 09:45 AMB (Rec: 04/11/22 16:02 AMB [id number]) Palpation Assessment Location One Palpation Location neck Palpation Details Tightness at UT and levator scap L>R, mild tenderness at suboccipitals PT-OP-K Range of Motion Start: 04/05/22 09:55 Freq: Status: Active Protocol: Document 04/11/22 09:45 AMB (Rec: 04/11/22 16:01 AMB [id number]) Cervical Spine Range of Motion Cervical Spine Active Degrees Testing Position Sitting Flexion 25 Extension 45 Rotation Left 55 Rotation Right 55 PT-OP-M Strength Start: 04/05/22 09:55 Freq: Status: Active Protocol: Document 04/11/22 09:45 AMB (Rec: 04/12/22 21:37 AMB [id number]) Cervical Spine Strength Cervical Spine Manual Muscle Testing Testing Position Supine Comments difficulty holding chin tuck/ neck flexion for more than 3 seconds with good form. PT-OP-Q Treatments Start: 04/05/22 09:55 Freq: Status: Active Protocol: Document 04/28/22 10:41 LRN (Rec: 04/28/22 11:26 LRN [id number]) Therapeutic Exercises Supine Exercises Horiz AB/AD Supine Exercise Name Neck Elongated-Horiz AB/AD Side bilateral Equipment Used 2# Reps/Minutes 15x Alternate arm lifts Supine Exercise Name Neck Elongated-Alternate arm lifts Side bilateral Equipment Used 2# Reps/Minutes 15x Sitting Exercises Shoulder press Sitting Exercise Name Shoulder press Side bilateral Reps/Minutes 21x, rest, 9x Standing Exercises wall walk and lift off Standing Exercise Name cued to maintain chin tuck and to perform lift off Reps/Minutes 15 Comments fatigues from arms overhead, cues for form shoulder ext Equipment Used #3 t band Reps/Minutes 3x10 rows Equipment Used #3 t band Reps/Minutes 3x10 Manual Therapy Treatment Soft Tissue Mobilization periscapular Body Location L UT, L LS Mobilization Type Myofascial Release,Strumming, Sustained Pressure Intensity/Depth Moderate Body Position Hooklying Comments focus on R UT, LS cervical Body Location Paraspinals, scalenes, C. tx Mobilization Type Strumming,Sustained Pressure Intensity/Depth Moderate Body Position Hooklying Comments manual cervical trx 2x30, LS stretch Joint Mobilizations cervical Joint C3-5 Direction UPA, Gapping L facets Grade II Body Position Supine Reps/Duration 4' PT-OP-R Modalities Start: 04/05/22 09:55 Freq: Status: Active Protocol: Document 04/18/22 10:30 AMB (Rec: 04/18/22 15:57 AMB [id number]) Hot Pack/Cold Pack Treatment Hot Pack Location cervical Patient Position Hooklying Treatment Duration (minutes) 10 Patient Tolerance Good PT-OP-T Assessment and Plan Start: 04/05/22 09:55 Freq: Status: Active Protocol: Document 04/28/22 10:41 LRN (Rec: 04/28/22 11:26 LRN [id number]) Physical Therapy Assessment Goals Two Impairment Pain Short Term Goal (STG) Lianna will work an 8 hour shift with 1/10 neck pain or less. STG Duration 4 weeks Mcc Goal (LTG) Lianna will work on the computer for one hour with 1/ 10 neck pain or less. LTG Duration 6 weeks One Impairment ROM Short Term Goal (STG) Lianna will improve her active cervical rotation to 65 degrees bilaterally. STG Duration 4 weeks Asbestos Hazard Abatement Worker Goal (LTG) Lianna will improve her active cervical flexion to at least 45 degrees. LTG Duration 6 weeks Assessment Summary Assessment Improving, decreased use of Salon Pas from 5 to 3 days a week. Pt feels L side of neck after therapy, but denied pain. Pt may have soreness from UT strengthening ex's. Physical Therapy Plan Frequency and Duration Frequency of Treatment 2x/Week Duration of treatment (weeks) 6 Plan of Care Start Date 04/11/22 Plan of Care End Date 05/23/22 Next Visit Focus/Plan Next Note Type Treatment Note Next Visit Plan Consider heat to start, or ex warm up on ?UBE. Offer wall walk HEP HO. Progress stretching HEP. Review Posterior chain strengthening (rows, ext), wall walk w/ liftoff. Review cervical rotation isometrics and UT stretch. Can consider modalities/heat. Manual for increasing ROM especially into flexion.
--- NOTE | 2022-05-05 13:52 | PT.OTN ---
Current Diagnoses Cervicalgia (05/05/22) Physical Therapy Treatment Note PT-OP-A Visit Information Start: 04/05/22 09:55 Freq: Status: Active Protocol: Document 05/05/22 13:11 NBM (Rec: 05/05/22 13:52 [facility] [id number]) Out-Patient Physical Therapy Visit Information Visit Information Visit Type Treatment Note Visit Start Time 13:06 Visit Stop Time 13:48 Total Visit Minutes 42 Visit Number 6 Number of CONSERVATION EDUCATOR Visits 1 PT-OP-B Current Condition Start: 04/05/22 09:55 Freq: Status: Active Protocol: Document 04/11/22 09:51 AMB (Rec: 04/11/22 09:58 AMB [id number]) Current Condition History of Current Condition Onset Date 1 year Current Complaints L sided neck pain History of Current Condition Lianna reports feeling better with new workstation (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 L sided upper trap pain/levator scap. Denies n/t. Overall continues to have tightness but significantly improved. Does run and do core exercises , just started with a link trainer mechanic for weights, does some stretching. Prior Functional Status Baseline Function- ADL's Independent Baseline Function- Mobility Independent PT-OP-C Subjective Start: 04/05/22 09:55 Freq: Status: Active Protocol: Document 05/05/22 13:11 NBM (Rec: 05/05/22 13:52 [facility] [id number]) OP-PT Subjective Patient Comments Patient Comments Pt states she woke up with a stiff neck today and is sleeping in the guest room since last night due to renovations. She used her regular pillows but the mattress is softer. She also moved furniture. She worked out this morning notices she is stiff. She felt good after the last visit. PT-OP-J Posture/Palpation/Skin Start: 04/05/22 09:55 Freq: Status: Active Protocol: Document 04/11/22 09:45 AMB (Rec: 04/11/22 16:02 AMB [id number]) Palpation Assessment Location One Palpation Location neck Palpation Details Tightness at UT and levator scap L>R, mild tenderness at suboccipitals PT-OP-K Range of Motion Start: 04/05/22 09:55 Freq: Status: Active Protocol: Document 04/11/22 09:45 AMB (Rec: 04/11/22 16:01 AMB [id number]) Cervical Spine Range of Motion Cervical Spine Active Degrees Testing Position Sitting Flexion 25 Extension 45 Rotation Left 55 Rotation Right 55 PT-OP-M Strength Start: 04/05/22 09:55 Freq: Status: Active Protocol: Document 04/11/22 09:45 AMB (Rec: 04/12/22 21:37 AMB [id number]) Cervical Spine Strength Cervical Spine Manual Muscle Testing Testing Position Supine Comments difficulty holding chin tuck/ neck flexion for more than 3 seconds with good form. PT-OP-Q Treatments Start: 04/05/22 09:55 Freq: Status: Active Protocol: Document 05/05/22 13:11 NBM (Rec: 05/05/22 13:52 NBM [id number]) Therapeutic Exercises Supine Exercises PPT Supine Exercise Name Posterior Pelvic Tilt Reps/Minutes 10x 5sec Comments w/ hot pack to thoracolumbar; cue for form Sitting Exercises LS stretch Side bilateral Reps/Minutes 30 x 2 Comments vc chin tuck UT stretch Side left Reps/Minutes 30x2 Comments vc chin tuck Manual Therapy Treatment Soft Tissue Mobilization periscapular Body Location L UT, L LS Mobilization Type Myofascial Release,Strumming, Sustained Pressure Intensity/Depth Moderate Body Position Hooklying Comments focus on R UT, LS cervical Body Location Paraspinals, scalenes, C. tx Mobilization Type Strumming,Sustained Pressure Intensity/Depth Moderate Body Position Hooklying Comments manual cervical trx 2x30 PT-OP-R Modalities Start: 04/05/22 09:55 Freq: Status: Active Protocol: Document 05/05/22 13:11 NBM (Rec: 05/05/22 13:52 NB [id number]) Hot Pack/Cold Pack Treatment Hot Pack Location thoracolumbar Patient Position Hooklying Treatment Duration (minutes) 15 Patient Tolerance Good Comments beginning treatment session PT-OP-T Assessment and Plan Start: 04/05/22 09:55 Freq: Status: Active Protocol: Document 05/05/22 13:11 NBM (Rec: 05/05/22 13:52 NB [id number]) Physical Therapy Assessment Goals Two Impairment Pain Short Term Goal (STG) Lianna will work an 8 hour shift with 1/10 neck pain or less. 05/05/22: at the most 1/10 - Goal met STG Duration 4 weeks Television News Reporter Goal (LTG) Lianna will work on the computer for one hour with 1/ 10 neck pain or less. LTG Duration 6 weeks One Impairment ROM Short Term Goal (STG) Lianna will improve her active cervical rotation to 65 degrees bilaterally. STG Duration 4 weeks Television News Reporter Goal (LTG) Lianna will improve her active cervical flexion to at least 45 degrees. LTG Duration 6 weeks Assessment Summary Assessment Treatment focus today on cervical stretching and manual therapy due to noticeable limited cervical ROM and stiffness, possibly due to sleeping in guest bed and moving furniture yesterday . Manual focus to cervical paraspinals and LS and Trapezius scapular insertions, L>R focus. Palpable tightness decreases with manual, and pt demonstrates improved cervical rotation and flexion/ extension and reports relief end of session. Pt has one visit scheduled and will schedule more today. Physical Therapy Plan Frequency and Duration Frequency of Treatment 2x/Week Duration of treatment (weeks) 6 Plan of Care Start Date 04/11/22 Plan of Care End Date 05/23/22 Therapeutic Interventions Therapeutic Interventions Home Exercise Program,Joint Mobilizations,Manual Therapy, Neuromuscular Re-education, Self-Care/Home Management, Therapeutic Activities, Therapeutic Exercises Modalities Cold Pack/Ice Massage,Electric Stimulation,Hot Packs Next Visit Focus/Plan Next Note Type Treatment Note Next Visit Plan Consider heat to start, or ex warm up on ?UBE. Offer wall walk HEP HO. Progress stretching HEP. Review Posterior chain strengthening (rows, ext), wall walk w/ liftoff. Review cervical rotation isometrics and UT stretch. Can consider modalities/heat. Manual for increasing ROM especially into flexion.
--- NOTE | 2022-05-09 16:00 | PT.OTN ---
Current Diagnoses Cervicalgia (05/09/22) Physical Therapy Treatment Note PT-OP-A Visit Information Start: 04/05/22 09:55 Freq: Status: Active Protocol: Document 05/09/22 10:40 AMB (Rec: 05/09/22 11:18 AMB [id number]) Out-Patient Physical Therapy Visit Information Visit Information Visit Type Treatment Note Visit Start Time 11:00 Visit Stop Time 13:48 Total Visit Minutes 42 Visit Number 7 Number of MINIATURE SET CONSTRUCTOR Visits 1 PT-OP-B Current Condition Start: 04/05/22 09:55 Freq: Status: Active Protocol: Document 04/11/22 09:51 AMB (Rec: 04/11/22 09:58 AMB [id number]) Current Condition History of Current Condition Onset Date 1 year Current Complaints L sided neck pain History of Current Condition Lianna reports feeling better with new workstation (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 L sided upper trap pain/levator scap. Denies n/t. Overall continues to have tightness but significantly improved. Does run and do core exercises , just started with a industrial trainer for weights, does some stretching. Prior Functional Status Baseline Function- ADL's Independent Baseline Function- Mobility Independent PT-OP-C Subjective Start: 04/05/22 09:55 Freq: Status: Active Protocol: Document 05/09/22 10:30 AMB (Rec: 05/09/22 16:00 AMB [id number]) OP-PT Subjective Patient Comments Patient Comments Pt continues to have increased pain with sleeping in different bed and after furniture moving. PT-OP-J Posture/Palpation/Skin Start: 04/05/22 09:55 Freq: Status: Active Protocol: Document 04/11/22 09:45 AMB (Rec: 04/11/22 16:02 AMB [id number]) Palpation Assessment Location One Palpation Location neck Palpation Details Tightness at UT and levator scap L>R, mild tenderness at suboccipitals PT-OP-K Range of Motion Start: 04/05/22 09:55 Freq: Status: Active Protocol: Document 04/11/22 09:45 AMB (Rec: 04/11/22 16:01 AMB [id number]) Cervical Spine Range of Motion Cervical Spine Active Degrees Testing Position Sitting Flexion 25 Extension 45 Rotation Left 55 Rotation Right 55 PT-OP-M Strength Start: 04/05/22 09:55 Freq: Status: Active Protocol: Document 04/11/22 09:45 AMB (Rec: 04/12/22 21:37 AMB [id number]) Cervical Spine Strength Cervical Spine Manual Muscle Testing Testing Position Supine Comments difficulty holding chin tuck/ neck flexion for more than 3 seconds with good form. PT-OP-Q Treatments Start: 04/05/22 09:55 Freq: Status: Active Protocol: Document 05/09/22 15:54 AMB (Rec: 05/09/22 15:59 AMB [id number]) Therapeutic Exercises Sitting Exercises Chin tuck Sitting Exercise Name w/ overpressure - HEP Reps/Minutes x10 Comments good form Scalene stretch Sitting Exercise Name HEP Side bilateral Reps/Minutes 30x2 Comments cues for form, good feedback response LS stretch Side bilateral Reps/Minutes 30 x 2 Comments vc chin tuck UT stretch Side left Reps/Minutes 30x2 Comments vc chin tuck Manual Therapy Treatment Soft Tissue Mobilization periscapular Body Location L UT, L LS Mobilization Type Myofascial Release,Strumming, Sustained Pressure Intensity/Depth Moderate Body Position Hooklying Comments focus on L UT, LS cervical Body Location Paraspinals, scalenes, C. tx Mobilization Type Strumming,Sustained Pressure Intensity/Depth Moderate Body Position Hooklying Comments manual cervical trx 2x30 PT-OP-R Modalities Start: 04/05/22 09:55 Freq: Status: Active Protocol: Document 05/09/22 10:30 AMB (Rec: 05/09/22 16:00 AMB [id number]) Hot Pack/Cold Pack Treatment Hot Pack Location thoracolumbar Patient Position Hooklying Treatment Duration (minutes) 15 Patient Tolerance Good Comments beginning treatment session PT-OP-T Assessment and Plan Start: 04/05/22 09:55 Freq: Status: Active Protocol: Document 05/09/22 15:54 AMB (Rec: 05/09/22 15:59 AMB [id number]) Physical Therapy Assessment Goals Two Impairment Pain Short Term Goal (STG) Lianna will work an 8 hour shift with 1/10 neck pain or less. 05/05/22: at the most 1/10 - Goal met STG Duration 4 weeks Longterm Goal (LTG) Lianna will work on the computer for one hour with 1/ 10 neck pain or less. LTG Duration 6 weeks One Impairment ROM Short Term Goal (STG) Lianna will improve her active cervical rotation to 65 degrees bilaterally. STG Duration 4 weeks Teleradiologist Goal (LTG) Lianna will improve her active cervical flexion to at least 45 degrees. LTG Duration 6 weeks Assessment Summary Assessment Treatement focused on L sided pain due to continued stiffness/pain s/p furniture moving. Discussed sleep postures. Physical Therapy Plan Frequency and Duration Frequency of Treatment 2x/Week Duration of treatment (weeks) 6 Plan of Care Start Date 04/11/22 Plan of Care End Date 05/23/22 Therapeutic Interventions Therapeutic Interventions Home Exercise Program,Joint Mobilizations,Manual Therapy, Neuromuscular Re-education, Self-Care/Home Management, Therapeutic Activities, Therapeutic Exercises Modalities Cold Pack/Ice Massage,Electric Stimulation,Hot Packs Next Visit Focus/Plan Next Note Type Treatment Note Next Visit Plan Consider heat to start, or ex warm up on ?UBE. Offer wall walk HEP HO. Progress stretching HEP. Review Posterior chain strengthening (rows, ext), wall walk w/ liftoff. Review cervical rotation isometrics and UT stretch. Can consider modalities/heat. Manual for increasing ROM especially into flexion.
--- NOTE | 2022-05-19 09:45 | PT.OTN ---
Current Diagnoses Cervicalgia (05/19/22) Physical Therapy Treatment Note PT-OP-A Visit Information Start: 04/05/22 09:55 Freq: Status: Active Protocol: Document 05/19/22 09:02 SP (Rec: 05/19/22 09:48 SP [id number]) Out-Patient Physical Therapy Visit Information Visit Information Visit Type Treatment Note Visit Start Time 09:02 Visit Stop Time 09:45 Total Visit Minutes 42 Visit Number 8 Number of SIGNALS INTELLIGENCE SUPERINTENDENT Visits 2 PT-OP-B Current Condition Start: 04/05/22 09:55 Freq: Status: Active Protocol: Document 04/11/22 09:51 AMB (Rec: 04/11/22 09:58 AMB [id number]) Current Condition History of Current Condition Onset Date 1 year Current Complaints L sided neck pain History of Current Condition Lianna reports feeling better with new workstation (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 L sided upper trap pain/levator scap. Denies n/t. Overall continues to have tightness but significantly improved. Does run and do core exercises , just started with a technology trainer for weights, does some stretching. Prior Functional Status Baseline Function- ADL's Independent Baseline Function- Mobility Independent PT-OP-C Subjective Start: 04/05/22 09:55 Freq: Status: Active Protocol: Document 05/19/22 09:02 SP (Rec: 05/19/22 09:48 SP [id number]) OP-PT Subjective Patient Comments Patient Comments Pt reports feel PT is helping feel less tightness and pain throughout day. Compliant with HEP. PT-OP-J Posture/Palpation/Skin Start: 04/05/22 09:55 Freq: Status: Active Protocol: Document 04/11/22 09:45 AMB (Rec: 04/11/22 16:02 AMB [id number]) Palpation Assessment Location One Palpation Location neck Palpation Details Tightness at UT and levator scap L>R, mild tenderness at suboccipitals PT-OP-K Range of Motion Start: 04/05/22 09:55 Freq: Status: Active Protocol: Document 04/11/22 09:45 AMB (Rec: 04/11/22 16:01 AMB [id number]) Cervical Spine Range of Motion Cervical Spine Active Degrees Testing Position Sitting Flexion 25 Extension 45 Rotation Left 55 Rotation Right 55 PT-OP-M Strength Start: 04/05/22 09:55 Freq: Status: Active Protocol: Document 04/11/22 09:45 AMB (Rec: 04/12/22 21:37 AMB [id number]) Cervical Spine Strength Cervical Spine Manual Muscle Testing Testing Position Supine Comments difficulty holding chin tuck/ neck flexion for more than 3 seconds with good form. PT-OP-Q Treatments Start: 04/05/22 09:55 Freq: Status: Active Protocol: Document 05/19/22 09:02 SP (Rec: 05/19/22 09:48 SP [id number]) Gym Equipment Cable Column (Body Solid) Rows Resistance 20# Reps/Time x15 pull down Resistance 20# Reps/Time x15 Therapeutic Exercises Sidelying Exercises openbook Sidelying Exercise Name added to HEP Side bilateral Reps/Minutes x8 reps Comments cued head turn and fluid scapular ROM/ TS rotation- good response Sitting Exercises Chin tuck Sitting Exercise Name w/ overpressure - HEP Reps/Minutes x10 Comments good form Scalene stretch Sitting Exercise Name HEP Side bilateral Reps/Minutes 30x2 Comments cued opp UE hand anchor clavicle LS stretch Side bilateral Reps/Minutes 30 x 2 Comments vc chin tuck UT stretch Sitting Exercise Name cued can use over pressure Side left Reps/Minutes 30x2 Comments vc chin tuck Standing Exercises CS: chin tuck, lat SB Standing Exercise Name initiated in PT Resistance TB #1 around head vs isometric Yellow ball wall Equipment Used mirror self alignment Reps/Minutes x10 each directions T, 5 reps 5 SH ball wall Comments cued no UT recruitment- good little effort response- cued trunk alignment wall walk and lift off Standing Exercise Name Ys off wall Resistance AROM, TB #1 Equipment Used cued to maintain chin tuck and to perform lift off Reps/Minutes x10 AROM, x8 reps TB #1 Comments cued closer to wall Other Exercises self STMs Other Exercise Name reviewed self STMs Equipment Used ball wall post scap, thercane Comments MWM head nods/turns, scap FM PT-OP-R Modalities Start: 04/05/22 09:55 Freq: Status: Active Protocol: Document 05/09/22 10:30 AMB (Rec: 05/09/22 16:00 AMB [id number]) Hot Pack/Cold Pack Treatment Hot Pack Location thoracolumbar Patient Position Hooklying Treatment Duration (minutes) 15 Patient Tolerance Good Comments beginning treatment session PT-OP-T Assessment and Plan Start: 04/05/22 09:55 Freq: Status: Active Protocol: Document 05/19/22 09:02 SP (Rec: 05/19/22 09:48 SP [id number]) Physical Therapy Assessment Goals Two Impairment Pain Short Term Goal (STG) Lianna will work an 8 hour shift with 1/10 neck pain or less. 05/05/22: at the most 1/10 - Goal met STG Duration 4 weeks Alf Goal (LTG) Lianna will work on the computer for one hour with 1/ 10 neck pain or less. LTG Duration 6 weeks One Impairment ROM Short Term Goal (STG) Lianna will improve her active cervical rotation to 65 degrees bilaterally. STG Duration 4 weeks Back Up Scan Coordinator Goal (LTG) Lianna will improve her active cervical flexion to at least 45 degrees. LTG Duration 6 weeks Assessment Summary Assessment Pt tolerated added resistance to CS ROM, Ys off wall for LT strengthening OH mobility and added open book (no HO requried) for fluid movement early am. Pt stated feels PT helping with less tension felt in neck end tx and carryover at home. Physical Therapy Plan Frequency and Duration Frequency of Treatment 2x/Week Duration of treatment (weeks) 6 Plan of Care Start Date 04/11/22 Plan of Care End Date 05/23/22 Therapeutic Interventions Therapeutic Interventions Home Exercise Program,Joint Mobilizations,Manual Therapy, Neuromuscular Re-education, Self-Care/Home Management, Therapeutic Activities, Therapeutic Exercises Modalities Cold Pack/Ice Massage,Electric Stimulation,Hot Packs Next Visit Focus/Plan Next Note Type Treatment Note Next Visit Plan Consider heat to start, or ex warm up on ?UBE. Offer Ys off wall, CS TB HEP HO if wants. Progress stretching HEP. Review Posterior chain strengthening (rows, ext). Review cervical rotation isometrics and UT stretch. Can consider modalities/heat. Manual for increasing ROM especially into flexion.
--- NOTE | 2022-05-30 12:00 | PT.OTN ---
Current Diagnoses Cervicalgia (05/30/22) Physical Therapy Treatment Note PT-OP-A Visit Information Start: 04/05/22 09:55 Freq: Status: Active Protocol: Document 05/30/22 09:57 AMB (Rec: 05/30/22 10:36 AMB [id number]) Out-Patient Physical Therapy Visit Information Visit Information Visit Type Progress Note Visit Start Time 09:02 Visit Stop Time 09:45 Total Visit Minutes 42 Visit Number 9 Number of IT DISASTER RECOVERY MANAGER Visits 0 PT-OP-B Current Condition Start: 04/05/22 09:55 Freq: Status: Active Protocol: Document 04/11/22 09:51 AMB (Rec: 04/11/22 09:58 AMB [id number]) Current Condition History of Current Condition Onset Date 1 year Current Complaints L sided neck pain History of Current Condition Lianna reports feeling better with new workstation (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 L sided upper trap pain/levator scap. Denies n/t. Overall continues to have tightness but significantly improved. Does run and do core exercises , just started with a customer service trainer for weights, does some stretching. Prior Functional Status Baseline Function- ADL's Independent Baseline Function- Mobility Independent PT-OP-C Subjective Start: 04/05/22 09:55 Freq: Status: Active Protocol: Document 05/30/22 09:45 AMB (Rec: 05/31/22 09:49 AMB [id number]) OP-PT Subjective Patient Comments Patient Comments Pt reports overall she feels she is improving, some days are more painful than others, continues to have stiffness in the neck. Patient Reported Progress Improving PT-OP-J Posture/Palpation/Skin Start: 04/05/22 09:55 Freq: Status: Active Protocol: Document 04/11/22 09:45 AMB (Rec: 04/11/22 16:02 AMB [id number]) Palpation Assessment Location One Palpation Location neck Palpation Details Tightness at UT and levator scap L>R, mild tenderness at suboccipitals PT-OP-K Range of Motion Start: 04/05/22 09:55 Freq: Status: Active Protocol: Document 04/11/22 09:45 AMB (Rec: 04/11/22 16:01 AMB [id number]) Cervical Spine Range of Motion Cervical Spine Active Degrees Testing Position Sitting Flexion 25 Extension 45 Rotation Left 55 Rotation Right 55 PT-OP-M Strength Start: 04/05/22 09:55 Freq: Status: Active Protocol: Document 04/11/22 09:45 AMB (Rec: 04/12/22 21:37 AMB [id number]) Cervical Spine Strength Cervical Spine Manual Muscle Testing Testing Position Supine Comments difficulty holding chin tuck/ neck flexion for more than 3 seconds with good form. PT-OP-Q Treatments Start: 04/05/22 09:55 Freq: Status: Active Protocol: Document 05/30/22 09:45 AMB (Rec: 05/31/22 09:49 AMB [id number]) Therapeutic Exercises Sitting Exercises Scalene stretch Sitting Exercise Name HEP Side bilateral Reps/Minutes 30x2 Comments cued opp UE hand anchor clavicle LS stretch Side bilateral Reps/Minutes 30 x 2 Comments vc chin tuck UT stretch Sitting Exercise Name cued can use over pressure Side left Reps/Minutes 30x2 Comments vc chin tuck Standing Exercises CS: chin tuck, lat SB Standing Exercise Name initiated in PT Resistance TB #1 around head vs isometric Yellow ball wall Equipment Used mirror self alignment Reps/Minutes x10 each directions T, 5 reps 5 SH ball wall Comments cued no UT recruitment- good little effort response- cued trunk alignment Manual Therapy Treatment Soft Tissue Mobilization cervical Body Location Paraspinals, scalenes, C. tx Mobilization Type Strumming,Sustained Pressure Intensity/Depth Moderate Body Position Hooklying Comments manual cervical trx 2x30 Joint Mobilizations cervical Joint C3-5 Direction UPA, Gapping L facets Grade II Body Position Supine Reps/Duration 4' PT-OP-R Modalities Start: 04/05/22 09:55 Freq: Status: Active Protocol: Document 05/09/22 10:30 AMB (Rec: 05/09/22 16:00 AMB [id number]) Hot Pack/Cold Pack Treatment Hot Pack Location thoracolumbar Patient Position Hooklying Treatment Duration (minutes) 15 Patient Tolerance Good Comments beginning treatment session PT-OP-T Assessment and Plan Start: 04/05/22 09:55 Freq: Status: Active Protocol: Document 05/30/22 09:57 AMB (Rec: 05/30/22 10:36 AMB [id number]) Physical Therapy Assessment Goals Two Impairment Pain Short Term Goal (STG) Lianna will work an 8 hour shift with 1/10 neck pain or less. 05/05/22: at the most 1/10 - Goal met STG Duration Goal met Mcfp Goal (LTG) Lianna will work on the computer for one hour with 1/ 10 neck pain or less. LTG Duration 6 weeks One Impairment ROM Short Term Goal (STG) Lianna will improve her active cervical rotation to 65 degrees bilaterally. STG Duration 4 weeks Mcfp Goal (LTG) Lianna will improve her active cervical flexion to at least 45 degrees. LTG Duration MET Assessment Summary Assessment Lianna has improved her ROM, but continues to be limited with cervical rotation- cervical flexion goal has been met. Overall pain levels are decreasing but stiffness comes and goes, work probably does increase pain/stiffness. Continue to progress exercises so that pt can be independent in near future. Physical Therapy Plan Frequency and Duration Frequency of Treatment 2x/Week Duration of treatment (weeks) 8 Plan of Care Start Date 05/30/22 Plan of Care End Date 07/25/22 Therapeutic Interventions Therapeutic Interventions Home Exercise Program,Joint Mobilizations,Manual Therapy, Neuromuscular Re-education, Self-Care/Home Management, Therapeutic Activities, Therapeutic Exercises Modalities Cold Pack/Ice Massage,Electric Stimulation,Hot Packs Next Visit Focus/Plan Next Note Type Treatment Note Next Visit Plan Consider UBE for warm up Offer Ys off wall, CS TB HEP HO if wants. Progress stretching HEP . Review Posterior chain strengthening (rows, ext). Review cervical rotation isometrics and UT stretch.
--- NOTE | 2022-05-30 12:00 | PT.OPPOC ---
Physical, Occupational & Speech Therapy At [facility] Current Diagnoses Cervicalgia (05/30/22) Visit Care Team Role Provider Type Alex Hankins MD Attending Provider Physician Family Provider Primary Care Provider Referring Provider Specialty: Internal Medicine Address: [address] [place] [address], [address], [place], [address] Email: [email or web address] Plan Of Care PT-OP-T Assessment and Plan Start: 04/05/22 09:55 Freq: Status: Active Protocol: Document 05/30/22 09:57 AMB (Rec: 05/30/22 10:36 AMB [id number]) Physical Therapy Assessment Goals Two Impairment Pain Short Term Goal (STG) Lianna will work an 8 hour shift with 1/10 neck pain or less. 05/05/22: at the most 1/10 - Goal met STG Duration Goal met Detention Goal (LTG) Lianna will work on the computer for one hour with 1/ 10 neck pain or less. LTG Duration 6 weeks One Impairment ROM Short Term Goal (STG) Lianna will improve her active cervical rotation to 65 degrees bilaterally. STG Duration 4 weeks Hot Plate Plywood Press Offbearer Goal (LTG) Lianna will improve her active cervical flexion to at least 45 degrees. LTG Duration MET Assessment Summary Assessment Lianna has improved her ROM, but continues to be limited with cervical rotation- cervical flexion goal has been met. Overall pain levels are decreasing but stiffness comes and goes, work probably does increase pain/stiffness. Continue to progress exercises so that pt can be independent in near future. Physical Therapy Plan Frequency and Duration Frequency of Treatment 2x/Week Duration of treatment (weeks) 8 Plan of Care Start Date 05/30/22 Plan of Care End Date 07/25/22 Therapeutic Interventions Therapeutic Interventions Home Exercise Program,Joint Mobilizations,Manual Therapy, Neuromuscular Re-education, Self-Care/Home Management, Therapeutic Activities, Therapeutic Exercises Modalities Cold Pack/Ice Massage,Electric Stimulation,Hot Packs Next Visit Focus/Plan Next Note Type Treatment Note Next Visit Plan Consider UBE for warm up Offer Ys off wall, CS TB HEP HO if wants. Progress stretching HEP . Review Posterior chain strengthening (rows, ext). Review cervical rotation isometrics and UT stretch. Plan of Care Dates Plan of Care Start Date 05/30/22 Plan of Care End Date 07/25/22 Electronically Signed by: Criss Francis, LOIL 05/31/22 0954 If you are in agreement with this Plan of Care, please return a signed and dated copy. I have reviewed this Plan of Care and certify that the skilled therapy services above are required to meet the patient?s needs. Physician Signature Date Printed Name and Credentials Clinical Instructor Signature Printed Name and Credentials
--- NOTE | 2022-06-02 10:35 | PT.OTN ---
Current Diagnoses Cervicalgia (06/02/22) Physical Therapy Treatment Note PT-OP-A Visit Information Start: 04/05/22 09:55 Freq: Status: Active Protocol: Document 06/02/22 09:56 NBM (Rec: 06/02/22 10:30 NBM [id number]) Out-Patient Physical Therapy Visit Information Visit Information Visit Type Treatment Note Visit Start Time 09:51 Visit Stop Time 10:31 Total Visit Minutes 40 Visit Number 10 Number of REFUELER Visits 1 PT-OP-B Current Condition Start: 04/05/22 09:55 Freq: Status: Active Protocol: Document 04/11/22 09:51 AMB (Rec: 04/11/22 09:58 AMB [id number]) Current Condition History of Current Condition Onset Date 1 year Current Complaints L sided neck pain History of Current Condition Lianna reports feeling better with new workstation (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 L sided upper trap pain/levator scap. Denies n/t. Overall continues to have tightness but significantly improved. Does run and do core exercises , just started with a puppy trainer for weights, does some stretching. Prior Functional Status Baseline Function- ADL's Independent Baseline Function- Mobility Independent PT-OP-C Subjective Start: 04/05/22 09:55 Freq: Status: Active Protocol: Document 06/02/22 09:56 NBM (Rec: 06/02/22 10:30 NBM [id number]) OP-PT Subjective Patient Comments Patient Comments Pt reports she has no pain today, but Mondays usually seem better in general, and she's no longer moving furniture. She thinks the neck exercise with Daisy with the band and ball was challenging and good. PT-OP-J Posture/Palpation/Skin Start: 04/05/22 09:55 Freq: Status: Active Protocol: Document 04/11/22 09:45 AMB (Rec: 04/11/22 16:02 AMB [id number]) Palpation Assessment Location One Palpation Location neck Palpation Details Tightness at UT and levator scap L>R, mild tenderness at suboccipitals PT-OP-K Range of Motion Start: 04/05/22 09:55 Freq: Status: Active Protocol: Document 04/11/22 09:45 AMB (Rec: 04/11/22 16:01 AMB [id number]) Cervical Spine Range of Motion Cervical Spine Active Degrees Testing Position Sitting Flexion 25 Extension 45 Rotation Left 55 Rotation Right 55 PT-OP-M Strength Start: 04/05/22 09:55 Freq: Status: Active Protocol: Document 04/11/22 09:45 AMB (Rec: 04/12/22 21:37 AMB [id number]) Cervical Spine Strength Cervical Spine Manual Muscle Testing Testing Position Supine Comments difficulty holding chin tuck/ neck flexion for more than 3 seconds with good form. PT-OP-Q Treatments Start: 04/05/22 09:55 Freq: Status: Active Protocol: Document 06/02/22 09:56 NBM (Rec: 06/02/22 10:30 NBM [id number]) Therapeutic Exercises Sidelying Exercises openbook Sidelying Exercise Name HEP review Side bilateral Reps/Minutes x8 reps ea Comments cued head turn and fluid scapular ROM/ TS rotation- good response Standing Exercises CS: chin tuck, lat SB Standing Exercise Name initiated in PT Resistance TB #1 around head vs isometric Yellow ball wall Equipment Used mirror self alignment Reps/Minutes x10 each directions T, ball wall attempted but too small Comments cued no UT recruitment- good little effort response- cued trunk alignment wall walk and lift off Standing Exercise Name wall walk off wall, then Y's off wall Resistance AROM, TB #1 Equipment Used cued to maintain chin tuck and to perform lift off Reps/Minutes x10 AROM, x8 reps TB #1 Comments cued closer to wall shoulder ext Standing Exercise Name HEP review Equipment Used #3 t band Reps/Minutes x10 rows Standing Exercise Name HEP review Equipment Used #3 t band Reps/Minutes 2x10 Comments cues for scapular setting first, elbows not past side PT-OP-R Modalities Start: 04/05/22 09:55 Freq: Status: Active Protocol: Document 05/09/22 10:30 AMB (Rec: 05/09/22 16:00 AMB [id number]) Hot Pack/Cold Pack Treatment Hot Pack Location thoracolumbar Patient Position Hooklying Treatment Duration (minutes) 15 Patient Tolerance Good Comments beginning treatment session PT-OP-T Assessment and Plan Start: 04/05/22 09:55 Freq: Status: Active Protocol: Document 06/02/22 09:56 NBM (Rec: 06/02/22 10:30 [facility] [id number]) Physical Therapy Assessment Goals Two Impairment Pain Short Term Goal (STG) Lianna will work an 8 hour shift with 1/10 neck pain or less. 05/05/22: at the most 1/10 - Goal met STG Duration Goal met Review Consultant Goal (LTG) Lianna will work on the computer for one hour with 1/ 10 neck pain or less. LTG Duration 6 weeks One Impairment ROM Short Term Goal (STG) Lianna will improve her active cervical rotation to 65 degrees bilaterally. STG Duration 4 weeks Senior Living Goal (LTG) Lianna will improve her active cervical flexion to at least 45 degrees. LTG Duration MET Assessment Summary Assessment Pt requires cues for holding some stretches at least thirty seconds. Pt's right thoracic rotation tighter than left rotation with open book stretch - good feedback response to both sides. Pt requires cues for scapular setting and chin tuck with resisted shoulder rows. Pt encouraged to do neck ex's w/ band at home before bed to encourage compliance for strengthening cervical stabilizers. Physical Therapy Plan Frequency and Duration Frequency of Treatment 2x/Week Duration of treatment (weeks) 8 Plan of Care Start Date 05/30/22 Plan of Care End Date 07/25/22 Therapeutic Interventions Therapeutic Interventions Home Exercise Program,Joint Mobilizations,Manual Therapy, Neuromuscular Re-education, Self-Care/Home Management, Therapeutic Activities, Therapeutic Exercises Modalities Cold Pack/Ice Massage,Electric Stimulation,Hot Packs Next Visit Focus/Plan Next Note Type Treatment Note Next Visit Plan Consider UBE for warm up Offer Ys off wall, CS TB HEP HO if wants. Progress stretching HEP . Review Posterior chain strengthening (rows, ext). Review cervical rotation isometrics and UT stretch.
--- NOTE | 2022-06-06 09:39 | PT.OTN ---
Current Diagnoses Cervicalgia (06/06/22) Physical Therapy Treatment Note PT-OP-A Visit Information Start: 04/05/22 09:55 Freq: Status: Active Protocol: Document 06/06/22 09:06 AMB (Rec: 06/06/22 09:38 AMB [id number]) Out-Patient Physical Therapy Visit Information Visit Information Visit Type Treatment Note Visit Start Time 09:00 Visit Stop Time 09:45 Total Visit Minutes 40 Visit Number 11 Number of NURSING TECHNICIAN Visits 0 PT-OP-B Current Condition Start: 04/05/22 09:55 Freq: Status: Active Protocol: Document 04/11/22 09:51 AMB (Rec: 04/11/22 09:58 AMB [id number]) Current Condition History of Current Condition Onset Date 1 year Current Complaints L sided neck pain History of Current Condition Lianna reports feeling better with new workstation (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 L sided upper trap pain/levator scap. Denies n/t. Overall continues to have tightness but significantly improved. Does run and do core exercises , just started with a education trainer for weights, does some stretching. Prior Functional Status Baseline Function- ADL's Independent Baseline Function- Mobility Independent PT-OP-C Subjective Start: 04/05/22 09:55 Freq: Status: Active Protocol: Document 06/06/22 09:06 AMB (Rec: 06/06/22 09:38 AMB [id number]) OP-PT Subjective Patient Comments Patient Comments Pt strained her mid back Thursday afternoon. PT-OP-J Posture/Palpation/Skin Start: 04/05/22 09:55 Freq: Status: Active Protocol: Document 04/11/22 09:45 AMB (Rec: 04/11/22 16:02 AMB [id number]) Palpation Assessment Location One Palpation Location neck Palpation Details Tightness at UT and levator scap L>R, mild tenderness at suboccipitals PT-OP-K Range of Motion Start: 04/05/22 09:55 Freq: Status: Active Protocol: Document 04/11/22 09:45 AMB (Rec: 04/11/22 16:01 AMB [id number]) Cervical Spine Range of Motion Cervical Spine Active Degrees Testing Position Sitting Flexion 25 Extension 45 Rotation Left 55 Rotation Right 55 PT-OP-M Strength Start: 04/05/22 09:55 Freq: Status: Active Protocol: Document 04/11/22 09:45 AMB (Rec: 04/12/22 21:37 AMB [id number]) Cervical Spine Strength Cervical Spine Manual Muscle Testing Testing Position Supine Comments difficulty holding chin tuck/ neck flexion for more than 3 seconds with good form. PT-OP-Q Treatments Start: 04/05/22 09:55 Freq: Status: Active Protocol: Document 06/06/22 09:06 AMB (Rec: 06/06/22 09:38 AMB [id number]) Therapeutic Exercises Sidelying Exercises openbook Sidelying Exercise Name HEP review Side bilateral Reps/Minutes x8 reps ea Comments cued head turn and fluid scapular ROM/ TS rotation- good response Sitting Exercises UT stretch Sitting Exercise Name cued can use over pressure Side left Reps/Minutes 30x2 Comments vc chin tuck Standing Exercises rows Standing Exercise Name HEP review Equipment Used #3 t band Reps/Minutes 2x10 Comments cues for scapular setting first, elbows not past side Other Exercises quadruped Other Exercise Name cat/cow, thread the needle Reps/Minutes 10 Manual Therapy Treatment Soft Tissue Mobilization periscapular Body Location L UT, L LS Mobilization Type Myofascial Release,Strumming, Sustained Pressure Intensity/Depth Moderate Body Position Hooklying Comments focus on L UT, LS cervical Body Location Paraspinals, scalenes, C. tx Mobilization Type Strumming,Sustained Pressure Intensity/Depth Moderate Body Position Hooklying Comments manual cervical trx 2x30 PT-OP-R Modalities Start: 04/05/22 09:55 Freq: Status: Active Protocol: Document 05/09/22 10:30 AMB (Rec: 05/09/22 16:00 AMB [id number]) Hot Pack/Cold Pack Treatment Hot Pack Location thoracolumbar Patient Position Hooklying Treatment Duration (minutes) 15 Patient Tolerance Good Comments beginning treatment session PT-OP-T Assessment and Plan Start: 04/05/22 09:55 Freq: Status: Active Protocol: Document 06/06/22 09:06 AMB (Rec: 06/06/22 09:38 AMB [id number]) Physical Therapy Assessment Goals Two Impairment Pain Short Term Goal (STG) Lianna will work an 8 hour shift with 1/10 neck pain or less. 2/6/23: at the most 1/10 - Goal met STG Duration Goal met Final Assembly And Packing Supervisor Goal (LTG) Lianna will work on the computer for one hour with 1/ 10 neck pain or less. LTG Duration 6 weeks One Impairment ROM Short Term Goal (STG) Lianna will improve her active cervical rotation to 65 degrees bilaterally. STG Duration 4 weeks Final Assembly And Packing Supervisor Goal (LTG) Lianna will improve her active cervical flexion to at least 45 degrees. LTG Duration MET Assessment Summary Assessment Pt doing well with her neck, more bothered by her back today. Physical Therapy Plan Frequency and Duration Frequency of Treatment 2x/Week Duration of treatment (weeks) 8 Plan of Care Start Date 05/30/22 Plan of Care End Date 07/25/22 Therapeutic Interventions Therapeutic Interventions Home Exercise Program,Joint Mobilizations,Manual Therapy, Neuromuscular Re-education, Self-Care/Home Management, Therapeutic Activities, Therapeutic Exercises Modalities Cold Pack/Ice Massage,Electric Stimulation,Hot Packs Next Visit Focus/Plan Next Note Type Treatment Note Next Visit Plan Consider UBE for warm up Offer Ys off wall, CS TB HEP HO if wants. Progress stretching HEP . Review Posterior chain strengthening (rows, ext). Review cervical rotation isometrics and UT stretch.
--- NOTE | 2022-06-09 12:24 | PT.OTN ---
Current Diagnoses Cervicalgia (06/09/22) Physical Therapy Treatment Note PT-OP-A Visit Information Start: 04/05/22 09:55 Freq: Status: Active Protocol: Document 06/09/22 11:22 NBM (Rec: 06/09/22 12:23 NB [id number]) Out-Patient Physical Therapy Visit Information Visit Information Visit Type Treatment Note Visit Start Time 11:20 Visit Stop Time 12:00 Total Visit Minutes 40 Visit Number 12 Number of SCREEN TENDER Visits 1 PT-OP-B Current Condition Start: 04/05/22 09:55 Freq: Status: Active Protocol: Document 04/11/22 09:51 AMB (Rec: 04/11/22 09:58 AMB [id number]) Current Condition History of Current Condition Onset Date 1 year Current Complaints L sided neck pain History of Current Condition Lianna reports feeling better with new workstation (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 L sided upper trap pain/levator scap. Denies n/t. Overall continues to have tightness but significantly improved. Does run and do core exercises , just started with a sharepoint trainer for weights, does some stretching. Prior Functional Status Baseline Function- ADL's Independent Baseline Function- Mobility Independent PT-OP-C Subjective Start: 04/05/22 09:55 Freq: Status: Active Protocol: Document 06/09/22 11:22 NBM (Rec: 06/09/22 12:23 [facility] [id number]) OP-PT Subjective Patient Comments Patient Comments Pt reports 3-4 pain with deep breath to mid-back. It's improved from a stabbing pain a few days ago to a tolerable pain level now. Pt reports pain worsened Thursday and she put on a back brace here and there during the weekend. She has not been doing ex's due to back pain, and did not try the neck theraband ex's before bed but thinks she will feel more secure to have her daughter hold the band for her and will try them that way. Cat/cow feels good. Pt has been doing open book to turn in bed and it seems to help a lot; decreased pain with sleeping positions at night. PT-OP-J Posture/Palpation/Skin Start: 04/05/22 09:55 Freq: Status: Active Protocol: Document 04/11/22 09:45 AMB (Rec: 04/11/22 16:02 AMB [id number]) Palpation Assessment Location One Palpation Location neck Palpation Details Tightness at UT and levator scap L>R, mild tenderness at suboccipitals PT-OP-K Range of Motion Start: 04/05/22 09:55 Freq: Status: Active Protocol: Document 04/11/22 09:45 AMB (Rec: 04/11/22 16:01 AMB [id number]) Cervical Spine Range of Motion Cervical Spine Active Degrees Testing Position Sitting Flexion 25 Extension 45 Rotation Left 55 Rotation Right 55 PT-OP-M Strength Start: 04/05/22 09:55 Freq: Status: Active Protocol: Document 04/11/22 09:45 AMB (Rec: 04/12/22 21:37 AMB [id number]) Cervical Spine Strength Cervical Spine Manual Muscle Testing Testing Position Supine Comments difficulty holding chin tuck/ neck flexion for more than 3 seconds with good form. PT-OP-Q Treatments Start: 04/05/22 09:55 Freq: Status: Active Protocol: Document 06/09/22 11:22 NBM (Rec: 06/09/22 12:23 NBM [id number]) Cardio Equipment Upper Body Ergometer (UBE) Duration (Minutes) 6 RPM 50 Seat Position 9 Height 3 Other 3 min ea fwd/bwd, cues for scap squeeze, chin tuck Therapeutic Exercises Standing Exercises kitchen sink stretch Standing Exercise Name added to HEP Equipment Used handrail Reps/Minutes 2 min Comments cue for chin tuck, good feedback response wall walk and lift off Standing Exercise Name Y's off wall Resistance AROM, TB #2 Equipment Used cued to maintain chin tuck and to perform lift off Reps/Minutes x10 AROM, x8 reps TB #2 Comments cued closer to wall Other Exercises child's pose Other Exercise Name fwd, lateral - added to HEP Reps/Minutes 2x45s Comments good feedback response quadruped Other Exercise Name cat/cow, thread the needle Reps/Minutes 10 Manual Therapy Treatment Soft Tissue Mobilization cervical Body Location Paraspinals, scalenes, C. tx Mobilization Type Strumming,Sustained Pressure Intensity/Depth Moderate Body Position Hooklying Comments manual cervical trx 2x30 SubOccipital Release manual tension to UT B, improves w/ manual pin & stretch PT-OP-R Modalities Start: 04/05/22 09:55 Freq: Status: Active Protocol: Document 06/09/22 11:22 NBM (Rec: 06/09/22 12:23 [facility] [id number]) Hot Pack/Cold Pack Treatment Cold Pack Location thoracolumbar Patient Position Hooklying Treatment Duration (minutes) 10 Patient Tolerance Good PT-OP-T Assessment and Plan Start: 04/05/22 09:55 Freq: Status: Active Protocol: Document 06/09/22 11:22 NB (Rec: 06/09/22 12:23 [facility] [id number]) Physical Therapy Assessment Goals Two Impairment Pain Short Term Goal (STG) Lianna will work an 8 hour shift with 1/10 neck pain or less. 05/05/22: at the most 1/10 - Goal met STG Duration Goal met Snf Goal (LTG) Lianna will work on the computer for one hour with 1/ 10 neck pain or less. LTG Duration 6 weeks One Impairment ROM Short Term Goal (STG) Lianna will improve her active cervical rotation to 65 degrees bilaterally. STG Duration 4 weeks Snf Goal (LTG) Lianna will improve her active cervical flexion to at least 45 degrees. LTG Duration MET Assessment Summary Assessment Pt presents with improving cervicalgia and is more bothered by mid-back pain today. Pt tolerates treatment without increased discomfort. Pt requires occasional cues for chin tuck and demonstrates good form with open book stretch and use of it for transitioning from sidelying to hooklying for bed mobility. Palpable tension to UT B improves w/ manual pin & stretch - pt is encouraged to perform cervical stretches from HEP. Added to stretching HEP: Kitchen Sink Stretch and Child's Pose - HO given. Physical Therapy Plan Frequency and Duration Frequency of Treatment 2x/Week Duration of treatment (weeks) 8 Plan of Care Start Date 05/30/22 Plan of Care End Date 07/25/22 Therapeutic Interventions Therapeutic Interventions Home Exercise Program,Joint Mobilizations,Manual Therapy, Neuromuscular Re-education, Self-Care/Home Management, Therapeutic Activities, Therapeutic Exercises Modalities Cold Pack/Ice Massage,Electric Stimulation,Hot Packs Next Visit Focus/Plan Next Note Type Treatment Note Next Visit Plan Consider UBE for warm up Offer Ys off wall, CS TB HEP HO if wants. Progress stretching HEP . Review Posterior chain strengthening (rows, ext). Review cervical rotation isometrics and UT stretch.
--- NOTE | 2022-06-13 18:58 | PT.OTN ---
Current Diagnoses Cervicalgia (06/13/22) Physical Therapy Treatment Note PT-OP-A Visit Information Start: 04/05/22 09:55 Freq: Status: Active Protocol: Document 06/13/22 08:21 AMB (Rec: 06/13/22 09:01 AMB [id number]) Out-Patient Physical Therapy Visit Information Visit Information Visit Type Treatment Note Visit Start Time 08:15 Visit Stop Time 09:00 Total Visit Minutes 45 Visit Number 13 PT-OP-B Current Condition Start: 04/05/22 09:55 Freq: Status: Active Protocol: Document 04/11/22 09:51 AMB (Rec: 04/11/22 09:58 AMB [id number]) Current Condition History of Current Condition Onset Date 1 year Current Complaints L sided neck pain History of Current Condition Lianna reports feeling better with new workstation (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 L sided upper trap pain/levator scap. Denies n/t. Overall continues to have tightness but significantly improved. Does run and do core exercises , just started with a outdoor fitness trainer for weights, does some stretching. Prior Functional Status Baseline Function- ADL's Independent Baseline Function- Mobility Independent PT-OP-C Subjective Start: 04/05/22 09:55 Freq: Status: Active Protocol: Document 06/13/22 08:21 AMB (Rec: 06/13/22 09:01 AMB [id number]) OP-PT Subjective Patient Comments Patient Comments Pts mid back improving, feels like will be ready to d/c in a couple visits. PT-OP-J Posture/Palpation/Skin Start: 04/05/22 09:55 Freq: Status: Active Protocol: Document 04/11/22 09:45 AMB (Rec: 04/11/22 16:02 AMB [id number]) Palpation Assessment Location One Palpation Location neck Palpation Details Tightness at UT and levator scap L>R, mild tenderness at suboccipitals PT-OP-K Range of Motion Start: 04/05/22 09:55 Freq: Status: Active Protocol: Document 04/11/22 09:45 AMB (Rec: 04/11/22 16:01 AMB [id number]) Cervical Spine Range of Motion Cervical Spine Active Degrees Testing Position Sitting Flexion 25 Extension 45 Rotation Left 55 Rotation Right 55 PT-OP-M Strength Start: 04/05/22 09:55 Freq: Status: Active Protocol: Document 04/11/22 09:45 AMB (Rec: 04/12/22 21:37 AMB [id number]) Cervical Spine Strength Cervical Spine Manual Muscle Testing Testing Position Supine Comments difficulty holding chin tuck/ neck flexion for more than 3 seconds with good form. PT-OP-Q Treatments Start: 04/05/22 09:55 Freq: Status: Active Protocol: Document 06/13/22 08:21 AMB (Rec: 06/13/22 09:01 AMB [id number]) Therapeutic Exercises Sitting Exercises Chin tuck Sitting Exercise Name w/ overpressure - HEP Reps/Minutes x10 Comments good form LS stretch Side bilateral Reps/Minutes 30 x 2 Comments vc chin tuck UT stretch Sitting Exercise Name cued can use over pressure Side left Reps/Minutes 30x2 Comments vc chin tuck Standing Exercises CS: chin tuck, lat SB Standing Exercise Name initiated in PT Resistance TB #1 around head vs isometric Yellow ball wall Equipment Used mirror self alignment Reps/Minutes x10 each directions T, ball wall attempted but too small Comments cued no UT recruitment- good little effort response- cued trunk alignment wall walk and lift off Standing Exercise Name Y's off wall Resistance AROM, TB #2 Equipment Used cued to maintain chin tuck and to perform lift off Reps/Minutes x10 AROM, x8 reps TB #2 Comments cued closer to wall Manual Therapy Treatment Soft Tissue Mobilization periscapular Body Location L UT, L LS Mobilization Type Myofascial Release,Strumming, Sustained Pressure Intensity/Depth Moderate Body Position Hooklying Comments focus on L UT, LS cervical Body Location Paraspinals, scalenes, C. tx Mobilization Type Strumming,Sustained Pressure Intensity/Depth Moderate Body Position Hooklying Comments manual cervical trx 2x30 SubOccipital Release manual tension to UT B, improves w/ manual pin & stretch PT-OP-R Modalities Start: 04/05/22 09:55 Freq: Status: Active Protocol: Document 06/09/22 11:22 NBM (Rec: 06/09/22 12:23 NBM [id number]) Hot Pack/Cold Pack Treatment Cold Pack Location thoracolumbar Patient Position Hooklying Treatment Duration (minutes) 10 Patient Tolerance Good PT-OP-T Assessment and Plan Start: 04/05/22 09:55 Freq: Status: Active Protocol: Document 06/13/22 08:21 AMB (Rec: 06/13/22 09:01 AMB [id number]) Physical Therapy Assessment Goals Two Impairment Pain Short Term Goal (STG) Lianna will work an 8 hour shift with 1/10 neck pain or less. 05/05/22: at the most 1/10 - Goal met STG Duration Goal met Medical Resident Goal (LTG) Lianna will work on the computer for one hour with 1/ 10 neck pain or less. LTG Duration 6 weeks One Impairment ROM Short Term Goal (STG) Lianna will improve her active cervical rotation to 65 degrees bilaterally. STG Duration 4 weeks Medical Resident Goal (LTG) Lianna will improve her active cervical flexion to at least 45 degrees. LTG Duration MET Assessment Summary Assessment Lianna continues to be somewhat tight and stiff in her neck, but overall is improving, expect d/c in near future once HEP finalized and pt is independent with tools to manage pain. Physical Therapy Plan Frequency and Duration Frequency of Treatment 2x/Week Duration of treatment (weeks) 8 Plan of Care Start Date 05/30/22 Plan of Care End Date 07/25/22 Therapeutic Interventions Therapeutic Interventions Home Exercise Program,Joint Mobilizations,Manual Therapy, Neuromuscular Re-education, Self-Care/Home Management, Therapeutic Activities, Therapeutic Exercises Modalities Cold Pack/Ice Massage,Electric Stimulation,Hot Packs Next Visit Focus/Plan Next Note Type Treatment Note Next Visit Plan Offer Ys off wall, CS TB HEP HO if wants. Progress stretching HEP. Review Posterior chain strengthening (rows, ext). Review cervical rotation isometrics and UT stretch.
--- NOTE | 2022-06-16 11:10 | PT.OTN ---
Current Diagnoses Cervicalgia (06/16/22) Physical Therapy Treatment Note PT-OP-A Visit Information Start: 04/05/22 09:55 Freq: Status: Active Protocol: Document 06/16/22 09:55 NBM (Rec: 06/16/22 11:07 NBM [id number]) Out-Patient Physical Therapy Visit Information Visit Information Visit Type Treatment Note Visit Start Time 09:52 Visit Stop Time 10:37 Total Visit Minutes 45 Visit Number 14 Number of TAX PREPARER Visits 1 PT-OP-B Current Condition Start: 04/05/22 09:55 Freq: Status: Active Protocol: Document 04/11/22 09:51 AMB (Rec: 04/11/22 09:58 AMB [id number]) Current Condition History of Current Condition Onset Date 1 year Current Complaints L sided neck pain History of Current Condition Lianna reports feeling better with new workstation (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 L sided upper trap pain/levator scap. Denies n/t. Overall continues to have tightness but significantly improved. Does run and do core exercises , just started with a sports trainer for weights, does some stretching. Prior Functional Status Baseline Function- ADL's Independent Baseline Function- Mobility Independent PT-OP-C Subjective Start: 04/05/22 09:55 Freq: Status: Active Protocol: Document 06/16/22 09:55 NBM (Rec: 06/16/22 11:03 NBM [id number]) OP-PT Subjective Patient Comments Patient Comments Pt reports she is feeling good for the first time in a long time. It took 9 days to be able to take a deep breath again. PT-OP-J Posture/Palpation/Skin Start: 04/05/22 09:55 Freq: Status: Active Protocol: Document 04/11/22 09:45 AMB (Rec: 04/11/22 16:02 AMB [id number]) Palpation Assessment Location One Palpation Location neck Palpation Details Tightness at UT and levator scap L>R, mild tenderness at suboccipitals PT-OP-K Range of Motion Start: 04/05/22 09:55 Freq: Status: Active Protocol: Document 04/11/22 09:45 AMB (Rec: 04/11/22 16:01 AMB [id number]) Cervical Spine Range of Motion Cervical Spine Active Degrees Testing Position Sitting Flexion 25 Extension 45 Rotation Left 55 Rotation Right 55 PT-OP-M Strength Start: 04/05/22 09:55 Freq: Status: Active Protocol: Document 04/11/22 09:45 AMB (Rec: 04/12/22 21:37 AMB [id number]) Cervical Spine Strength Cervical Spine Manual Muscle Testing Testing Position Supine Comments difficulty holding chin tuck/ neck flexion for more than 3 seconds with good form. PT-OP-Q Treatments Start: 04/05/22 09:55 Freq: Status: Active Protocol: Document 06/16/22 09:55 NBM (Rec: 06/16/22 11:03 NBM [id number]) Therapeutic Exercises Sitting Exercises Cervical Retraction Iso Sitting Exercise Name w/ towel - HEP Equipment Used hands interlaced Reps/Minutes 10x3 SH Comments good feedback response Scalene stretch Sitting Exercise Name HEP Side bilateral Reps/Minutes 30x2 Comments cued opp UE hand anchor clavicle LS stretch Side bilateral Reps/Minutes 30 x 2 Comments vc chin tuck UT stretch Sitting Exercise Name cued can use over pressure Side left Reps/Minutes 30x2 Comments R tighter than L Standing Exercises CS: chin tuck, lat SB Standing Exercise Name initiated in PT - added to HEP Resistance TB #1 around head vs isometric Yellow ball wall Equipment Used mirror self alignment Reps/Minutes x10 each directions T Comments good form, + feedback response wall walk and lift off Standing Exercise Name Y's off wall Resistance AROM, TB #2 Equipment Used cued to maintain chin tuck Reps/Minutes x12 reps TB #2 shoulder ext Standing Exercise Name HEP review Equipment Used #3 t band Reps/Minutes x10 rows Standing Exercise Name HEP review Equipment Used #3 t band Reps/Minutes 2x10 Manual Therapy Treatment Soft Tissue Mobilization periscapular Body Location L UT, L LS Mobilization Type Myofascial Release,Strumming, Sustained Pressure Intensity/Depth Moderate Body Position Hooklying Comments focus on R UT, LS cervical Body Location Paraspinals, scalenes, C. tx Mobilization Type Strumming,Sustained Pressure Intensity/Depth Moderate Body Position Hooklying Comments manual cervical trx 2x30 SubOccipital Release manual tension to UT B, improves w/ manual pin & stretch Self-Care/Home Management Treatment Education Patient Education Home Exercise Program Other Education Added to HEP: C Sp: chin tuck w/ resisted lateral sidebend - HO given. Pt declined HO for Ys off wall. PT-OP-R Modalities Start: 04/05/22 09:55 Freq: Status: Active Protocol: Document 06/09/22 11:22 NBM (Rec: 06/09/22 12:23 NB [id number]) Hot Pack/Cold Pack Treatment Cold Pack Location thoracolumbar Patient Position Hooklying Treatment Duration (minutes) 10 Patient Tolerance Good PT-OP-T Assessment and Plan Start: 04/05/22 09:55 Freq: Status: Active Protocol: Document 06/16/22 09:55 NBM (Rec: 06/16/22 11:03 [facility] [id number]) Physical Therapy Assessment Goals Two Impairment Pain Short Term Goal (STG) Lianna will work an 8 hour shift with 1/10 neck pain or less. 05/05/22: at the most 1/10 - Goal met STG Duration Goal met Senior Living Goal (LTG) Lianna will work on the computer for one hour with 1/ 10 neck pain or less. LTG Duration 6 weeks One Impairment ROM Short Term Goal (STG) Lianna will improve her active cervical rotation to 65 degrees bilaterally. STG Duration 4 weeks Guard Range Goal (LTG) Lianna will improve her active cervical flexion to at least 45 degrees. LTG Duration MET Progress Towards Goals Progress Towards Goals Progressing Toward Goals Assessment Summary Assessment One visit scheduled. Treatment focus on HEP review. Lianna continues to progress towards discharge and presents today with improved form with all ex 's and decreased cervical and mid-back pain, but observable and palpable cervical tightness R>L. R UT palpable tightness improves w/ manual therapy. Pt requires occasional initial cues for chin tuck w/ ex's but otherwise demonstrates improved self-awareness. Pt demonstrates improved form w/ wall walk and Y's off the wall ex. Added to HEP: C Sp: chin tuck w/ resisted lateral sidebend - HO given. Pt declined HO for Ys off wall. Physical Therapy Plan Frequency and Duration Frequency of Treatment 2x/Week Duration of treatment (weeks) 8 Plan of Care Start Date 05/30/22 Plan of Care End Date 07/25/22 Therapeutic Interventions Therapeutic Interventions Home Exercise Program,Joint Mobilizations,Manual Therapy, Neuromuscular Re-education, Self-Care/Home Management, Therapeutic Activities, Therapeutic Exercises Modalities Cold Pack/Ice Massage,Electric Stimulation,Hot Packs Next Visit Focus/Plan Next Note Type Treatment Note Next Visit Plan Assess for d/c. Review cervical rotation isometrics and UT stretch.
--- NOTE | 2022-06-20 08:57 | PT.OTN ---
Current Diagnoses Cervicalgia (06/20/22) Physical Therapy Treatment Note PT-OP-A Visit Information Start: 04/05/22 09:55 Freq: Status: Active Protocol: Document 06/20/22 08:17 AMB (Rec: 06/20/22 08:56 AMB [id number]) Out-Patient Physical Therapy Visit Information Visit Information Visit Type Treatment Note Visit Start Time 08:15 Visit Stop Time 09:00 Total Visit Minutes 45 Visit Number 15 PT-OP-B Current Condition Start: 04/05/22 09:55 Freq: Status: Active Protocol: Document 04/11/22 09:51 AMB (Rec: 04/11/22 09:58 AMB [id number]) Current Condition History of Current Condition Onset Date 1 year Current Complaints L sided neck pain History of Current Condition Lianna reports feeling better with new workstation (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 L sided upper trap pain/levator scap. Denies n/t. Overall continues to have tightness but significantly improved. Does run and do core exercises , just started with a link trainer operator for weights, does some stretching. Prior Functional Status Baseline Function- ADL's Independent Baseline Function- Mobility Independent PT-OP-C Subjective Start: 04/05/22 09:55 Freq: Status: Active Protocol: Document 06/20/22 08:17 AMB (Rec: 06/20/22 08:56 AMB [id number]) OP-PT Subjective Patient Comments Patient Comments Most of the time has 0/10 neck pain, at it's worst 3/10 1x/ week uses theracane and did stretches and got rid of it. At the end of a long day. PT-OP-J Posture/Palpation/Skin Start: 04/05/22 09:55 Freq: Status: Active Protocol: Document 04/11/22 09:45 AMB (Rec: 04/11/22 16:02 AMB [id number]) Palpation Assessment Location One Palpation Location neck Palpation Details Tightness at UT and levator scap L>R, mild tenderness at suboccipitals PT-OP-K Range of Motion Start: 04/05/22 09:55 Freq: Status: Active Protocol: Document 04/11/22 09:45 AMB (Rec: 04/11/22 16:01 AMB [id number]) Cervical Spine Range of Motion Cervical Spine Active Degrees Testing Position Sitting Flexion 25 Extension 45 Rotation Left 55 Rotation Right 55 PT-OP-M Strength Start: 04/05/22 09:55 Freq: Status: Active Protocol: Document 04/11/22 09:45 AMB (Rec: 04/12/22 21:37 AMB [id number]) Cervical Spine Strength Cervical Spine Manual Muscle Testing Testing Position Supine Comments difficulty holding chin tuck/ neck flexion for more than 3 seconds with good form. PT-OP-Q Treatments Start: 04/05/22 09:55 Freq: Status: Active Protocol: Document 06/20/22 08:17 AMB (Rec: 06/20/22 08:56 AMB [id number]) Therapeutic Exercises Sitting Exercises Chin tuck Sitting Exercise Name w/ overpressure - HEP Reps/Minutes x10 Comments good form Scalene stretch Sitting Exercise Name HEP Side bilateral Reps/Minutes 30x2 Comments cued opp UE hand anchor clavicle UT stretch Sitting Exercise Name cued can use over pressure Side left Reps/Minutes 30x2 Comments R tighter than L Standing Exercises shoulder ext Standing Exercise Name HEP review Equipment Used #3 t band Reps/Minutes x10 Manual Therapy Treatment Soft Tissue Mobilization cervical Body Location Paraspinals, scalenes, C. tx Mobilization Type Strumming,Sustained Pressure Intensity/Depth Moderate Body Position Hooklying Comments manual cervical trx 2x30 SubOccipital Release manual tension to UT B, improves w/ manual pin & stretch PT-OP-R Modalities Start: 04/05/22 09:55 Freq: Status: Active Protocol: Document 06/09/22 11:22 NBM (Rec: 06/09/22 12:23 NBM [id number]) Hot Pack/Cold Pack Treatment Cold Pack Location thoracolumbar Patient Position Hooklying Treatment Duration (minutes) 10 Patient Tolerance Good PT-OP-T Assessment and Plan Start: 04/05/22 09:55 Freq: Status: Active Protocol: Document 06/20/22 08:17 AMB (Rec: 06/20/22 08:56 AMB [id number]) Physical Therapy Assessment Goals Two Impairment Pain Short Term Goal (STG) Lianna will work an 8 hour shift with 1/10 neck pain or less. 05/05/22: at the most 1/10 - Goal met STG Duration Goal met Usp Goal (LTG) Lianna will work on the computer for one hour with 1/ 10 neck pain or less. LTG Duration MET One Impairment ROM Short Term Goal (STG) Lianna will improve her active cervical rotation to 65 degrees bilaterally. STG Duration 55 degrees Usp Goal (LTG) Lianna will improve her active cervical flexion to at least 45 degrees. LTG Duration MET Assessment Summary Assessment Lianna is independent with her HEP, her neck ROM is good and she does not have neck pain with the majority of activities, work can still increase her pain, but she does have tools to escalona that . NDI 10% Physical Therapy Plan Frequency and Duration Frequency of Treatment 2x/Week Duration of treatment (weeks) 8 Plan of Care Start Date 05/30/22 Plan of Care End Date 07/25/22 Therapeutic Interventions Therapeutic Interventions Home Exercise Program,Joint Mobilizations,Manual Therapy, Neuromuscular Re-education, Self-Care/Home Management, Therapeutic Activities, Therapeutic Exercises Modalities Cold Pack/Ice Massage,Electric Stimulation,Hot Packs Next Visit Focus/Plan Next Note Type Treatment Note
== END 2022-06-23 11:08 | disposition home or self-care (01) ==
LOC: PHYS 08:15
PROVIDERS: Family Provider Internal Medicine; PCP Internal Medicine; Referring Provider Internal Medicine; Visit Provider Internal Medicine
DX: M54.2 Cervicalgia (principal)
CPT/HCPCS: 97010; 97110; 97140; 97161

== ENCOUNTER → 2022-09-02 10:29 | Outpatient (CLI) | payer OTHER, SELFPAY ==
[2022-09-03 14:24] LABS: Candida species Negative (Negative); Gardnerella vaginalis Positive (Negative); Trichomoas vaginalis Negative (Negative)
== END ==
PROVIDERS: Family Provider Internal Medicine; PCP Internal Medicine; Visit Provider Obstetrics & Gynecology
DX: N89.8 Other specified noninflammatory disorders of vagina (principal)
CPT/HCPCS: 87480; 87510; 87660

== ENCOUNTER → 2022-11-19 12:00 | Outpatient (CLI) | payer OTHER, SELFPAY ==
[2022-11-19 13:18] LABS: Influenza A - CEPHEID Flu A NEGATIVE (NEGATIVE); Influenza B - CEPHEID Flu B NEGATIVE (NEGATIVE); Respiratory Syncytial Virus Negative (Negative)
[2022-11-19 13:39] LABS: COVID-19 CEPHEID 4-PLEX PCR Negative (Negative)
== END ==
PROVIDERS: Family Provider Internal Medicine; PCP Internal Medicine; Visit Provider Internal Medicine
DX: R05.9 Cough, unspecified (principal)
CPT/HCPCS: 0241U

== ENCOUNTER → 2023-07-27 14:16 | Outpatient (CLI) | payer OTHER, SELFPAY ==
[2023-07-27 15:49] LABS: Ur Creatinine Normal (Normal); Ur Specific Gravity Normal (Normal); Urine pH Normal (Normal)
[2023-07-27 15:50] LABS: UR Morphine/Opiate cutoff 300 Negative (Negative); Urine Amphetamines Negative (Negative); Urine Barbiturates Negative (Negative); Urine Benzodiazepines Negative (Negative); Urine Cocaine Negative (Negative); Urine MDMA Negative (Negative); Urine Methadone Negative (Negative); Urine Methamphetamines Negative (Negative); Urine Oxycodone Negative (Negative); Urine Phencyclidine Negative (Negative); Urine Tetrahydrocannabinol Negative (Negative); Urine Tricyclic Antidepressant Negative (Negative)
[2023-07-28 03:41] LABS: Hepatitis B Surf AB Quant 15.9 mIU/mL (Immunity>9.9)
[2023-07-28 08:56] LABS: Rubeola Measles IgG > 300.0 AU/mL (Immune >16.4); Var-Zoster Immunity Screen 936 index (Immune >165)
[2023-07-28 13:01] LABS: Mumps Virus IgG Antibody 81.7 AU/mL (Immune >10.9)
[2023-07-28 16:12] LABS: Rubella Antibody IgG 13.5 IU/mL (>15)
== END ==
PROVIDERS: Family Provider Internal Medicine; PCP Internal Medicine
DX: Z02.1 Encounter for pre-employment examination (principal)
CPT/HCPCS: 36415; 80305; 86480; 86706; 86735; 86762; 86765; 86787

== ENCOUNTER → 2023-10-28 14:20 | Outpatient (CLI) | payer OTHER, SELFPAY ==
--- NOTE | 2023-10-28 14:22 | DI.MG.S_ITS ---
BILATERAL DIGITAL SCREENING MAMMOGRAM 3D/2D WITH CAD: 10/28/2023 CLINICAL: Routine screening. Comparison is made to exams dated: 01/31/2022 mammogram, 08/25/2020 mammogram, 07/11/2017 mammogram, and 06/28/2015 mammogram - [facility]. Both breasts are heterogeneously dense, which may obscure small masses (category c / 51-75% glandular tissue). Current study was also evaluated with a Computer Aided Detection (CAD) system. There is a possible developing asymmetry in the left breast posterior depth central to the nipple seen on the craniocaudal view only. No other significant masses, calcifications, or other findings are seen in either breast. IMPRESSION: INCOMPLETE: NEEDS ADDITIONAL IMAGING EVALUATION The possible developing asymmetry in the left breast is indeterminate. Additional views with possible ultrasound are recommended. Based on the Tyrer Cuzick model (a risk assessment model) the patient's lifetime risk is 15.5% and her 10 year risk is 3.5%. According to the ACR, ACS, and NCCN guidelines, an annual breast MRI exam along with mammogram is recommended if the patient's lifetime risk is 20% or greater. This exam was interpreted at Station ID: [id number]. NOTE: For mammograms, a report in lay terms will be sent to the patient. Approximately 15% of breast malignancies will not be visualized mammographically. In the management of a palpable breast mass, a negative mammogram must not discourage biopsy of a clinically suspicious lesion. Electronically Signed By: Anders So M.D. [facility]/:10/28/2023 15:17:28 letter sent: Additional Imaging Needed ACR BI-RADS Category 0: Incomplete 3340F
== END ==
PROVIDERS: Family Provider Internal Medicine; PCP Internal Medicine; Referring Provider Internal Medicine; Visit Provider Internal Medicine
DX: Z12.31 Encounter for screening mammogram for malignant neoplasm of breast (principal); R92.333 Mammographic heterogeneous density, bilateral breasts
CPT/HCPCS: 77063; 77067

== ENCOUNTER → 2023-11-11 10:19 | Outpatient (CLI) | payer OTHER, SELFPAY ==
--- NOTE | 2023-11-11 | DI.MG.S_ITS ---
UNILATERAL LEFT DIGITAL DIAGNOSTIC MAMMOGRAM 3D/2D WITH ADDITIONAL VIEWS: 11/11/2023 CLINICAL: Additional evaluation requested from prior study. Comparison is made to exams dated: 10/28/2023 mammogram, 01/31/2022 mammogram, and 08/25/2020 mammogram - [facility]. The left breast is heterogeneously dense, which may obscure small masses (category c / 51-75% glandular tissue). The possible developing low density asymmetry in the left breast posterior depth central to the nipple previously seen on the craniocaudal view only, is much less prominent and decreased in density with focal compression. This is not convincingly seen in additional views. No other significant masses or calcifications are seen in the breast. IMPRESSION: INCOMPLETE: NEEDS ADDITIONAL IMAGING EVALUATION Near complete resolution of the possible asymmetry in the left breast with additional views. This most likely is fibroglandular tissue but remains indeterminate. An ultrasound is recommended. This was performed immediately following this exam. Based on the Tyrer Cuzick model (a risk assessment model) the patient's lifetime risk is 15.5% and her 10 year risk is 3.5%. According to the ACR, ACS, and NCCN guidelines, an annual breast MRI exam along with mammogram is recommended if the patient's lifetime risk is 20% or greater. This exam was interpreted at Station ID: [id number]. NOTE: For mammograms, a report in lay terms will be sent to the patient. Approximately 15% of breast malignancies will not be visualized mammographically. In the management of a palpable breast mass, a negative mammogram must not discourage biopsy of a clinically suspicious lesion. Electronically Signed By: Veronica soria/:11/11/2023 14:28:57 ACR BI-RADS Category 0: Incomplete 3340F
--- NOTE | 2023-11-11 10:21 | DI.US.S_ITS ---
LIMITED ULTRASOUND OF LEFT BREAST: 11/11/2023 CLINICAL: Patient returns today to evaluate an asymmetry in the left breast. Comparison is made to exams dated: 11/11/2023 mammogram, 10/28/2023 mammogram, 01/31/2022 mammogram, 08/25/2020 mammogram, 07/31/2017 mammogram, and 07/11/2017 mammogram - [facility]. Real-time ultrasound of the left breast retroareolar was performed. Burgos scale images of the real-time examination were reviewed. No significant abnormalities were seen sonographically in the left breast. Specifically, no finding to correspond to the patient's nearly resolved, possible screening mammographic abnormality. IMPRESSION: PROBABLY BENIGN No sonographic correlate to the partially resolved screening mammogram finding. A follow-up mammogram and possible ultrasound in 6 months is recommended to demonstrate stability. Findings and recommendations were conveyed to the patient at time of exam. This exam was interpreted at Station ID: [id number]. Electronically Signed By: Veronica soria/:11/11/2023 14:32:09 letter sent: Followup Recommended Ultrasound BI-RADS: 3 Probably benign
== END ==
LOC: MAMMO 10:20
PROVIDERS: Family Provider Internal Medicine; PCP Internal Medicine; Referring Provider Internal Medicine; Visit Provider Internal Medicine
DX: R92.8 Other abnormal and inconclusive findings on diagnostic imaging of breast (principal); R92.332 Mammographic heterogeneous density, left breast
CPT/HCPCS: 76642; 77065; G0279

== ENCOUNTER → 2024-05-17 13:27 | Outpatient (CLI) | payer OTHER, SELFPAY ==
--- NOTE | 2024-05-17 13:29 | DI.MG.S_ITS ---
UNILATERAL LEFT DIGITAL DIAGNOSTIC MAMMOGRAM 3D/2D SHORT-TERM FOLLOW-UP: 05/17/2024 CLINICAL: Short term follow up left breast. Comparison is made to exams dated: 11/11/2023 mammogram, 10/28/2023 mammogram, 01/31/2022 mammogram, 08/25/2020 mammogram, and 11/11/[address] [facility]. The breasts are heterogeneously dense, which may obscure small masses (category c / 51-75% glandular tissue). There is an asymmetry in the left breast posterior depth lateral region seen on the craniocaudal view only. This is less prominent and was not seen on the prior ultrasound. No other significant masses or calcifications are seen in the breast. IMPRESSION: PROBABLY BENIGN The asymmetry in the left breast most likely is fibroglandular tissue and is probably benign. A follow-up mammogram in 6 months is recommended to demonstrate stability. Patient will be due for right mammogram at that time. Exam findings were conveyed to the patient. Based on the Tyrer Cuzick model (a risk assessment model) the patient's lifetime risk is 14.3% and her 10 year risk is 3.4%. According to the ACR, ACS, and NCCN guidelines, an annual breast MRI exam along with mammogram is recommended if the patient's lifetime risk is 20% or greater. This exam was interpreted at Station ID: [id number]. NOTE: For mammograms, a report in lay terms will be sent to the patient. Approximately 15% of breast malignancies will not be visualized mammographically. In the management of a palpable breast mass, a negative mammogram must not discourage biopsy of a clinically suspicious lesion. Electronically Signed By: Andres So M.D. [facility] [place]/:05/17/2024 14:07:12 letter sent: Followup Recommended ACR BI-RADS Category 3: Probably Benign
== END ==
LOC: MAMMO 13:28
PROVIDERS: Family Provider Internal Medicine; PCP Internal Medicine; Referring Provider Internal Medicine; Visit Provider Internal Medicine
DX: R92.8 Other abnormal and inconclusive findings on diagnostic imaging of breast (principal); R92.333 Mammographic heterogeneous density, bilateral breasts; N64.89 Other specified disorders of breast
CPT/HCPCS: 77065; G0279

== ENCOUNTER 2024-08-18 09:31 | Emergency (ER) | payer OTHER, SELFPAY ==
[2024-08-18 09:37] VITALS: BP 137/63; PULSE 82; RESP 16; TEMP 37.3; O2SAT 99; BMI 28.9
--- NOTE | 2024-08-18 11:59 | ED_ITS ---
HPI - Allergic Reaction <Claudia Reyes PA-C - Last Filed: 08/18/24 17:20> General Chief complaint: Allergic Reaction Stated complaint: Reaction to bee sting Time Seen by Provider: 08/18/24 11:59 Source: patient Mode of arrival: Wheelchair History of Present Illness HPI narrative: Ms. Feliciano is a very pleasant 49-year-old female who presents to the emergency department after being stung by a bee yesterday morning of her left eyelid, left cheek, right hand. She took Benadryl this morning around 8:00 a.m. continues to have worsening swelling of the left eye. She also took Zyrtec this morning as she always does for seasonal allergies. Patient states she was gardening when she accidentally bumped into a bird house it was full of bees. She has not been stung by bees and she was 9 years old and does not recall having a reaction in the past. States that she only had a small bump on her left upper eyelid, left lower lip, and right index finger yesterday however when she woke up this morning the swelling was much worse. She denies any nausea, vomiting, shortness of breath, chest pain, wheezing, difficulty breathing, oropharyngeal swelling. She is concerned of the Benadryl might be making her symptoms worse as the swelling got worse after taking the Benadryl this morning. She denies history of diabetes or other medical problems. Related Data Home Medications Medication Instructions Recorded Confirmed cetirizine 10 mg tablet 10 mg PO Q DAY ##0 06/07/12 08/18/24 fluticasone propionate 50 1 spray intranasal DAILY 08/21/20 08/18/24 mcg/actuation nasal spray,suspension (Flonase Allergy Relief) Previous Rx's Medication Instructions Recorded metronidazole 1 % topical gel 1 applic topical DAILY #60 grams 09/05/22 (Metrogel) epinephrine 0.3 mg/0.3 mL 0.3 ml IM Q5-15M PRN anaphylaxis 08/18/24 injection, auto-injector #2 ea famotidine 40 mg tablet (Pepcid) 40 mg PO DAILY 5 days #5 tabs 08/18/24 prednisone 20 mg tablet 40 mg (2 x 20 mg) PO DAILY 5 days 08/18/24 #10 tabs Allergies Allergy/AdvReac Type Severity Reaction Status Date / Time No Known Drug Allergies Allergy Verified 08/18/24 09:23 Review of Systems <Claudia Reyes PA-C - Last Filed: 08/18/24 17:20> Review of Systems ROS Unobtainable: All systems reviewed & are unremarkable except as noted in HPI and below Patient History <Claudia Reyes PA-C - Last Filed: 08/18/24 17:20> Medical History Bee sting reaction Common wart Cervical intraepithelial neoplasia grade III with severe dysplasia (01/22/11) Surgical History Status post delivery History of tonsillectomy Family History Father Age: 85 Heart disease Social History household members: family Smoking Status: Never smoker alcohol intake: current Smoking Status: Never smoker alcohol intake frequency: a few times a month Exam <Claudia Reyes PA-C - Last Filed: 08/18/24 17:20> Narrative Exam Narrative: GENERAL: 49 year old patient appears stated age. Well-developed patient, in no acute distress. HEAD: Atraumatic. Normocephalic. EYES: Erythema and edema of left periocular area. PERRL. Extraocular motions intact. No scleral icterus. No injection or drainage. ENT: Edema of left lower lip. Nose without bleeding, purulent drainage. Throat without erythema, tonsillar hypertrophy or exudate. No oropharyngeal swelling. Airway patent. NECK: Trachea midline. Cervical ROM intact. No stridor. CARDIOVASCULAR: Regular rate and rhythm. RESPIRATORY: ?Nonlabored respirations. ?Speaking in clear, full sentences. ?Clear to auscultation. Breath sounds equal bilaterally. No wheezes, rales, or rhonchi. ? EXTREMITIES: Slight erythema of distal right index finger. NEURO: AOx3. ?Clear speech. ?Moves all 4 extremities appropriately. Ambulates independently. SKIN: Erythema and edema of left periocular region, left lower lip, right index finger distal tip. No other rashes, no urticaria. Initial Vital Signs Initial Vital Signs: Vital Signs Temperature 99.2 F 08/18/24 09:37 Pulse Rate 82 08/18/24 09:37 Respiratory Rate 16 08/18/24 09:37 Blood Pressure 137/63 08/18/24 09:37 Pulse Oximetry 99 08/18/24 09:37 Oxygen Delivery Method Room Air 08/18/24 09:37 <Adalberto Norton MD - Last Filed: 08/18/24 19:14> Initial Vital Signs Initial Vital Signs: Vital Signs Temperature 99.2 F 08/18/24 09:37 Pulse Rate 82 08/18/24 09:37 Respiratory Rate 16 08/18/24 09:37 Blood Pressure 137/63 08/18/24 09:37 Pulse Oximetry 99 08/18/24 09:37 Oxygen Delivery Method Room Air 08/18/24 09:37 Course <Claudia Reyes PA-C - Last Filed: 08/18/24 17:20> Orders Ordered: Discontinued Medications Epinephrine HCl (Epinephrine 1 Mg/Ml) 0.3 mg IM NOW ONE Stop: 08/18/24 13:26 Last Admin: 08/18/24 13:45 Dose: 0.3 mg Documented By: Famotidine (Famotidine 20 Mg Tablet) 40 mg PO NOW ONE Stop: 08/18/24 12:15 Last Admin: 08/18/24 12:18 Dose: 40 mg Documented By: Prednisone (Prednisone 20 Mg Tablet) 60 mg PO NOW ONE Stop: 08/18/24 12:15 Last Admin: 08/18/24 12:18 Dose: 60 mg Documented By: Reevaluation(s) Reevaluation #1: Re-assessed patient, she feels as though the swelling to the left side of her face is not improving and is getting worse. Upper eyelid swelling does appear to be getting better to me however. Continues to have no difficulty breathing or airway compromise, however after shared decision-making with the attending physician and the patient, we will proceed with 0.3 mg of IM epinephrine and 2-4 hours of observation Time: 13:13 Vital Signs Vital signs: Vital Signs - 8 hr 08/18/24 14:00 08/18/24 14:30 08/18/24 15:00 Temperature Pulse Rate 88 89 92 H Respiratory Rate 16 15 16 Blood Pressure 123/57 L 130/62 125/59 L Pulse Oximetry 100 98 98 Oxygen Delivery Method Room Air Room Air Room Air 08/18/24 16:37 Temperature 98.2 F Pulse Rate 65 Respiratory Rate 16 Blood Pressure 125/78 Pulse Oximetry 98 Oxygen Delivery Method Room Air <Adalberto Norton MD - Last Filed: 08/18/24 19:14> Orders Ordered: Discontinued Medications Epinephrine HCl (Epinephrine 1 Mg/Ml) 0.3 mg IM NOW ONE Stop: 08/18/24 13:26 Last Admin: 08/18/24 13:45 Dose: 0.3 mg Documented By: Famotidine (Famotidine 20 Mg Tablet) 40 mg PO NOW ONE Stop: 08/18/24 12:15 Last Admin: 08/18/24 12:18 Dose: 40 mg Documented By: Prednisone (Prednisone 20 Mg Tablet) 60 mg PO NOW ONE Stop: 08/18/24 12:15 Last Admin: 08/18/24 12:18 Dose: 60 mg Documented By: Vital Signs Vital signs: Vital Signs - 8 hr 08/18/24 14:00 08/18/24 14:30 08/18/24 15:00 Temperature Pulse Rate 88 89 92 H Respiratory Rate 16 15 16 Blood Pressure 123/57 L 130/62 125/59 L Pulse Oximetry 100 98 98 Oxygen Delivery Method Room Air Room Air Room Air 08/18/24 16:37 Temperature 98.2 F Pulse Rate 65 Respiratory Rate 16 Blood Pressure 125/78 Pulse Oximetry 98 Oxygen Delivery Method Room Air MDM - Allergic Reaction <Claudia Reyes PA-C - Last Filed: 08/18/24 17:20> Medical Records Attestation: I reviewed the patient's medical records. MDM Narrative Medical decision making narrative: 49-year-old female who presents to the emergency department after being stung by a bee yesterday morning of her left eyelid, left cheek, right hand. Differential diagnosis includes but isn't limited to bee venom reaction, cutaneous allergic reaction, etc. On exam patient is in no acute distress, nontoxic-appearing, all vital signs within normal limits, she is in no respiratory distress, no inspiratory stridor, no wheezing. She does have erythema and edema of the left periocular region, left lower lip, and right index finger where the bee stings occurred. She already took Benadryl and Zyrtec this morning, no signs of anaphylaxis or airway compromise, we will treat with prednisone and Pepcid at this time. After initial treatment patient believes that her swelling was getting worse so she was treated with 0.3 mg of IM epinephrine and then monitored for over 2 hours, she had no worsening of symptoms, recommend complete full 5 day course of prednisone, Pepcid, antihistamines, she was prescribed to EpiPen, recommended follow up with PCP in 1-2 days for recheck of her left eye, discussed possibilities of periorbital cellulitis however at this time suspect swelling is all because of the bee sting. All vital signs within normal limits, no difficulty breathing, stable for discharge home. Discharge Plan Departure Patient Disposition: Home Clinical Impression: Bee sting reaction Qualifiers: Encounter type: initial encounter Injury intent: accidental or unintentional Qualified Code(s): T63.441A - Toxic effect of venom of bees, accidental (unintentional), initial encounter Instructions: DI for Anaphylaxis Activity Restrictions/Additional Instructions: Dear Ms. Feliciano, Thank you for coming to the emergency department. Today you were treated with steroids, Pepcid, and epinephrine after being stung by bees yesterday morning. Please complete the full 5 day course of steroids, Pepcid and take a daily antihistamine such as Benadryl or Zyrtec. Please follow up with your primary care doctor in 1-2 days for repeat evaluation. If you continue to have redness and swelling around your eye, you will need to be evaluated for possible skin infection as well. Please return to the ER for any new or worsening symptoms. Please follow up with your primary care doctor within the next 2-3 days for ER follow-up. (If you do not have a PCP you can call [phone]. ?to schedule an appointment with an [facility] Primary Care Provider) IF YOU DEVELOP ANY NEW OR WORSENING SYMPTOMS, RETURN TO THE ER! Please read the attached instructions, they highlight more specific treatments and interventions for you at home. Thank you for letting me participate in your care, Claudia Reyes PA-C Prescriptions: New epinephrine 0.3 mg/0.3 mL auto-injector 0.3 ml IM Q5-15M PRN (Reason: anaphylaxis) Qty: 2 0RF Rx Instructions: do not exceed 3 doses per episode prednisone 20 mg tablet 40 mg PO DAILY 5 Days Qty: 10 0RF famotidine [Pepcid] 40 mg tablet 40 mg PO DAILY 5 Days Qty: 5 0RF No Action cetirizine 10 MG tablet 10 mg PO Q DAY Qty: 0 metronidazole [Metrogel] 1 % gel 1 applic topical DAILY Qty: 60 0RF Rx [address]ructions: Place one applicator in vagina daily for 7 days fluticasone propionate [Flonase Allergy Relief] 50 mcg/actuation spray,suspension 1 spray intranasal DAILY Rx Instructions: administer into each nostril Referrals: Alex Hankins MD [Primary Care Provider] - Stand Alone Forms: Patient Portal/API/Survey ED Sign-out <Adalberto Norton MD - Last Filed: 08/18/24 19:14> Cosign ED Attending Cosignature Attestation: I was immediately available in the department for consultation. This documentation has been reviewed and I agree with assessment and plan. Supervised by Adalberto Norton MD
--- NOTE | 2024-08-18 12:04 | PC.NURSE ---
PT has swelling to left eye and cheek. Denies SOB.
[2024-08-18] MEDS: FAMOTIDINE 20 MG TABLET 40 MG PO (12:18)
[2024-08-18] MEDS: predniSONE 20 MG TABLET 60 MG PO (12:18)
[2024-08-18] MEDS: EPINEPHrine 1 MG/ML 0.3 MG IM (13:45)
[2024-08-18 14:00] VITALS: BP 123/57; PULSE 88; RESP 16; O2SAT 100
[2024-08-18 14:30] VITALS: BP 130/62; PULSE 89; RESP 15; O2SAT 98
[2024-08-18 15:00] VITALS: BP 125/59; PULSE 92; RESP 16; O2SAT 98
[2024-08-18 16:37] VITALS: BP 125/78; PULSE 65; RESP 16; TEMP 36.8; O2SAT 98
== END 2024-08-18 16:38 | disposition home or self-care (01) ==
PROVIDERS: Emergency Provider Physician Assistant; Family Provider Internal Medicine; PCP Internal Medicine
DX: T63.441A Toxic effect of venom of bees, accidental (unintentional), initial encounter (principal)
CPT/HCPCS: 96372; 99283; A9270; J0171